=== PATIENT | female | born 1995 | race Caucasian/White ===

== ENCOUNTER 2017-08-26 16:02 | Inpatient (IN) | payer OTHER ==
[2017-08-26] VITALS: BP 106/69; PULSE 123; O2SAT 97
[~2017-08-26] VITALS: Ht 154.9 cm; Wt 80.4 kg
[2017-08-26] MEDS ORDERED: KETOROLAC TROMETHAMINE 30 MG/ML VIAL IV STA (16:40)
[2017-08-26] MEDS ORDERED: ONDANSETRON INJ 2 MG/ML 2 ML VIAL IV STA (16:40)
[2017-08-26] MEDS ORDERED: ACETAMINOPHEN 500 MG TAB PO STA (16:40)
[2017-08-26] MEDS ORDERED: [UNRECOGNIZED DRUG - OTHER] PO (16:44)
[2017-08-26] MEDS ORDERED: SODIUM CHLORIDE 0.9% 1000ML 1,000 ML IV ONE (16:45)
--- NOTE | 2017-08-26 16:46 | EMERGENCY ROOM VISIT NOTE ---
History First contact with patient: 16:31 Chief Complaint: FEVER Stated Complaint: STOMACH HURTS, FEVER, DIZZINESS, HEADACHE History of Present Illness The patient is a 21 year old female who presents to the Emergency Room with complaints of flulike symptoms for the last day. The patient describes body aches, headache, nausea, lightheadedness and a mild sore throat. She denies any chest pain or shortness of breath. She had 2 episodes of vomiting. She denies any abdominal pain or diarrhea. No recent travel. The patient is a [employer] student. Review of Systems 10 system review performed and negative unless noted in HPI or below Past Medical/Surgical History Medical Problems: (1) No Known Active Medical Problems Social History Smoking Status: Never Smoker Alcohol Use: none Occupation Status: [employer] student Current/Historical Medications Scheduled [Tylenol-Caffeine], 1 TAB PO PRN UD Physical Exam Vital Signs Date Time Temp Pulse Resp B/P (MAP) Pulse Ox O2 Delivery O2 Flow Rate FiO2 08/26/17 22:25 37.4 104 16 92/68 99 Nasal Cannula 3 08/26/17 22:15 101 16 96/61 99 Nasal Cannula 3 08/26/17 22:05 103 14 83/64 97 Nasal Cannula 3 08/26/17 21:55 37.2 100 14 93/57 97 Nasal Cannula 3 08/26/17 21:02 89 18 120/87 99 Room Air 08/26/17 19:45 88 18 100/68 96 Room Air 08/26/17 17:57 37.3 99 18 100/58 99 Room Air 08/26/17 16:13 38.6 116 17 118/78 98 Room Air Physical Exam VITALS: Vitals are noted on the nurse's note and reviewed by myself. Vital signs stable. GENERAL: 21-year-old female, mildly ill in appearance, well-developed well- nourished. SKIN: The skin was without rashes, erythema, edema, or bruising. HEAD: Normocephalic atraumatic. EYES: Pupils equal round and reactive to light and accommodation. Conjunctivae without injection, sclerae without icterus. Extraocular movements intact. NOSE: Patent, turbinates without inflammation or discharge. No sinus tenderness. MOUTH: Mucous membranes dry. Tonsils are not enlarged. Pharynx without erythema or exudate. Uvula midline. Airway patent. Tongue does not deviate. NECK: Supple without nuchal rigidity. No lymphadenopathy. Cervical spine is nontender. No JVD. HEART: Regular rate and rhythm without murmurs gallops or rubs. LUNGS: Clear to auscultation bilaterally without wheezes, rales or rhonchi. No accessory muscle use. ABDOMEN: Positive bowel sounds x 4.Soft, nontender, without organomegaly. No guarding or rebound tenderness. Positive left-sided CVA tenderness MUSCULOSKELETAL: No muscle atrophy, erythema, or edema noted. Strength 5/5 throughout. NEURO: Patient was alert and oriented to person place and time. Normal sensation to touch. No focal neurological deficits. Medical Decision & Procedures ER Provider Diagnostic Interpretation: CXR IMPRESSION: 1. No acute cardiopulmonary disease. Electronically signed by: Darci Smith M.D. 08/26/2017 5:02 PM Dictated Date/Time: 08/26/2017 5:02 PM The status of this report is Signed. Draft = Not yet reviewed or approved by Radiologist. Signed = Reviewed and approved by Radiologist. CT abdomen/pelvis with contrast IMPRESSION: 1. Obstructing 4 mm calculus in the proximal left ureter with resultant mild left hydroureteronephrosis. Multifocal regions of hypoperfusion in the left kidney with renal enlargement and perinephric fat stranding raise concern for resultant superimposed infection/pyelonephritis. Correlate with urinalysis. The presence of only mild urothelial thickening and normal fluid density within the left renal collecting system suggests against the presence of pyonephrosis. 2. Bilateral nephrolithiasis. The report will be called/faxed according to standard departmental protocol. Electronically signed by: Darci Smith M.D. 08/26/2017 7:29 PM Dictated Date/Time: 08/26/2017 7:20 PM The status of this report is Signed. Draft = Not yet reviewed or approved by Radiologist. Signed = Reviewed and approved by Radiologist. Laboratory Results 08/26/17 16:55 Red Blood Count 4.35, Mean Corpuscular Volume 80.0, Mean Corpuscular Hemoglobin 26.4, Mean Corpuscular Hemoglobin Concent 33.0, Mean Platelet Volume 9.3, Neutrophils (%) (Auto) 83.0, Lymphocytes (%) (Auto) 8.4, Monocytes (%) (Auto) 8.0, Eosinophils (%) (Auto) 0.0, Basophils (%) (Auto) 0.2, Neutrophils # (Auto) 23.47, Lymphocytes # (Auto) 2.38, Monocytes # (Auto) 2.26, Eosinophils # (Auto) 0.00, Basophils # (Auto) 0.06 08/26/17 16:55 Test 08/26/17 16:55 08/26/17 17:10 08/26/17 18:45 08/26/17 19:43 White Blood Count 28.29 K/uL (4.8-10.8) Red Blood Count 4.35 M/uL (4.2-5.4) Hemoglobin 11.5 g/dL (12.0-16.0) Hematocrit 34.8 % (37-47) Mean Corpuscular Volume 80.0 fL (80-100) Mean Corpuscular Hemoglobin 26.4 pg (25-34) Mean Corpuscular Hemoglobin Concent 33.0 g/dl (32-36) Platelet Count 297 K/uL (130-400) Mean Platelet Volume 9.3 fL (7.4-10.4) Neutrophils (%) (Auto) 83.0 % Lymphocytes (%) (Auto) 8.4 % Monocytes (%) (Auto) 8.0 % Eosinophils (%) (Auto) 0.0 % Basophils (%) (Auto) 0.2 % Neutrophils # (Auto) 23.47 K/uL (1.4-6.5) Lymphocytes # (Auto) 2.38 K/uL (1.2-3.4) Monocytes # (Auto) 2.26 K/uL (0.11-0.59) Eosinophils # (Auto) 0.00 K/uL (0-0.5) Basophils # (Auto) 0.06 K/uL (0-0.2) RDW Standard Deviation 40.6 fL (36.4-46.3) RDW Coefficient of Variation 13.9 % (11.5-14.5) Immature Granulocyte % (Auto) 0.4 % Immature Granulocyte # (Auto) 0.12 K/uL (0.00-0.02) Anion Gap 10.0 mmol/L (3-11) Est Creatinine Clear Calc Drug Dose 78.1 ml/min Estimated GFR () 85.2 Estimated GFR (Non- 73.5 BUN/Creatinine Ratio 14.9 (10-20) Calcium Level 9.2 mg/dl (8.5-10.1) Total Bilirubin 0.8 mg/dl (0.2-1) Aspartate Amino Transf (AST/SGOT) 12 U/L (15-37) Alanine Aminotransferase (ALT/SGPT) 17 U/L (12-78) Alkaline Phosphatase 97 U/L (45-117) Total Protein 7.8 gm/dl (6.4-8.2) Albumin 3.4 gm/dl (3.4-5.0) Globulin 4.4 gm/dl (2.5-4.0) Albumin/Globulin Ratio 0.8 (0.9-2) Influenza Type A (RT-PCR) Neg for Influ A (NEG) Influenza Type B (RT-PCR) Neg for Influ B (NEG) Urine Color YELLOW Urine Appearance CLOUDY (CLEAR) Urine pH 5.0 (4.5-7.5) Urine Specific [place] 1.013 (1.000-1.030) Urine Protein TRACE (NEG) Urine Glucose (UA) NEG (NEG) Urine Ketones TRACE (NEG) Urine Occult Blood 1+ (NEG) Urine Nitrite POS (NEG) Urine Bilirubin NEG (NEG) Urine Urobilinogen NEG (NEG) Urine Leukocyte Esterase MODERATE (NEG) Urine WBC (Auto) 10-30 /hpf (0-5) Urine RBC (Auto) 0-4 /hpf (0-4) Urine Hyaline Casts (Auto) 5-10 /lpf (0-5) Urine Epithelial Cells (Auto) >30 /lpf (0-5) Urine Bacteria (Auto) 2+ (NEG) Urine Test NEG (NEG) Lactic Acid Level 0.8 mmol/L (0.4-2.0) Medications Administered Medications (Trade) Dose Ordered Sig/Lise Route Start Time Stop Time Status Last Admin Dose Admin Ketorolac Tromethamine (Toradol Inj) 30 mg NOW STAT IV 08/26/17 16:40 08/26/17 16:42 DC 08/26/17 17:08 30 MG Acetaminophen (Tylenol Tab) 1,000 mg NOW STAT PO 08/26/17 16:40 08/26/17 16:42 DC 08/26/17 17:09 1,000 MG Sodium Chloride 1,000 ml @ 999 mls/hr Q1H1M ONCE IV 08/26/17 16:45 11/9/17 17:45 DC 08/26/17 17:07 999 MLS/HR Ondansetron HCl (Zofran Inj) 4 mg NOW STAT IV 08/26/17 16:40 08/26/17 16:42 DC 08/26/17 17:08 4 MG Potassium Chloride (Kcl 10 Meq / Wtr) 10 meq NOW STAT IV 08/26/17 18:10 08/26/17 18:12 DC 08/26/17 19:44 10 MEQ Ceftriaxone Sodium (Rocephin Inj) 1 gm NOW STAT IV 08/26/17 19:55 08/26/17 19:56 DC 08/26/17 20:58 1 GM Belladonna/Opium (B & O Adult Supp) 60 mg ONE ONCE OR 08/26/17 22:07 08/26/17 22:08 DC 08/26/17 21:50 60 MG ED Course Patient was seen and examined Vital signs including blood pressure were reviewed medications list was verified with patient Labs were obtained, and a saline lock was established The patient was medicated with Tylenol, Toradol, Zofran and hydrated with 1 L of normal saline The patient was given 1 dose of ceftriaxone 1 g IV Upon reevaluation, the patient was more comfortable. We discussed the results of her workup. A CT of the abdomen and pelvis was performed and reviewed. The case was discussed with Dr. Sanders from urology The patient was reassessed and resting comfortably. We discussed the results of her workup and treatment. She voiced understanding. The patient was taken from the emergency department to the OR for definitive treatment Medical Decision Differential diagnosis: Influenza, strep pharyngitis, viral pharyngitis, meningitis, pneumonia, bronchitis, other viral syndrome, musculoskeletal back pain, viral GI illness, UTI This patient is a 21-year-old female that presented to the emergency department with main complaints of fever, muscle aches and vomiting. Initially, her symptoms sounded like a viral infection. However on physical exam, she does have left-sided CVA tenderness. She has significant leukocytosis with a white blood cell count of almost 30,000. A urinalysis does appear infected. A CT scan reveals left-sided pyelonephritis with a obstructing 4 mm proximal stone. The patient was treated with ceftriaxone. I spoke with Dr. Sanders from urology. The patient was taken from the emergency department to the OR for definitive treatment. This chart was completed in part utilizing [employer] Speech Voice Recognition software. Attempts were made to minimize the grammatical errors, random word insertions, pronoun errors and incomplete sentences. Any formal questions or concerns about the content, text or information contained within the body of this dictation should be directly addressed to the provider for clarification. Consults Consulting Physician: Dr. Sanders Impression Primary Impression: Pyelonephritis Departure Information Referrals No Doctor, Assigned (PCP) Forms HOME CARE DOCUMENTATION FORM, IMPORTANT VISIT INFORMATION Patient Instructions [facility]
--- NOTE | 2017-08-26 17:03 | DIAGNOSTIC IMAGING REPORT ---
CHEST ONE VIEW PORTABLE CLINICAL HISTORY: 21 years-old Female presenting with fever. TECHNIQUE: Portable upright AP view of the chest was obtained. COMPARISON: None. FINDINGS: Cardiomediastinal silhouette normal. Lungs and pleural spaces clear. Osseous structures normal. Upper abdomen normal. IMPRESSION: 1. No acute cardiopulmonary disease. Electronically signed by: Darci Smith M.D. 08/26/2017 5:02 PM Dictated Date/Time: 08/26/2017 5:02 PM
[2017-08-26 17:13] LABS: HEMATOCRIT 34.8 % (37-47); MEAN CORPUSCULAR HEMOGLOBIN 26.4 pg (25-34); MEAN PLATELET VOLUME 9.3 fL (7.4-10.4); PLATELET COUNT 297 K/uL (130-400); RED BLOOD COUNT 4.35 M/uL (4.2-5.4); WHITE BLOOD COUNT 28.29 K/uL (4.8-10.8)
[2017-08-26 17:32] LABS: BUN/CREATININE RATIO 14.9 (10-20); CALCIUM 9.2 mg/dl (8.5-10.1); CREATININE 1.09 mg/dl (0.60-1.20); POTASSIUM 2.9 mmol/L (3.5-5.1)
[2017-08-26 17:34] LABS: ALB/GLOB RATIO 0.8 (0.9-2)
[2017-08-26 18:02] LABS: INFLUENZA A PCR Neg for Influ A (NEG); INFLUENZA B PCR Neg for Influ B (NEG)
[2017-08-26] MEDS ORDERED: POTASSIUM CHLORIDE 10 MEQ / 100ML WTR IV STA (18:10)
[2017-08-26 18:27] LABS: BASO % 0.2 %; BASO ABS # 0.06 K/uL (0-0.2); COMPLETE YES; IG% 0.4 %; LYMPH % 8.4 %; LYMPH ABS # 2.38 K/uL (1.2-3.4)
[2017-08-26] MEDS ORDERED: OPTIRAY 320 IV PRN (18:45)
[2017-08-26 19:04] LABS: URINE APPEARANCE CLOUDY (CLEAR); URINE BILIRUBIN NEG (NEG); URINE COLOR YELLOW; URINE EPITHELIAL CELL AUTO >30 /lpf (0-5); URINE NITRITE POS (NEG); URINE SPECIFIC GRAVITY 1.013 (1.000-1.030); UROBILINOGEN NEG (NEG)
[2017-08-26 19:10] LABS: MANUAL MICROSCOPIC REQUIRED? NO; REVIEW REQ? YES
--- NOTE | 2017-08-26 19:31 | DIAGNOSTIC IMAGING REPORT ---
ABD/PELVIS IV CONTRAST ONLY CLINICAL HISTORY: 21 years-old Female presenting with fever epigastric left CVA tenderness/pain. TECHNIQUE: Multidetector CT of the abdomen and pelvis was performed after the administration of intravenous contrast. IV contrast: 94 mL of Optiray 320. A dose lowering technique was used consistent with the principles of ALARA (as low as reasonably achievable). COMPARISON: None. CT DOSE (mGy.cm): The estimated cumulative dose is 422.75 mGy.cm. FINDINGS: Senior [employer] topogram: Unremarkable. Lung bases: Minimal dependent changes likely atelectasis. Normal heart size. No pericardial or pleural effusion. Liver: Normal morphology. No liver lesion. Patent hepatic vasculature. Biliary: No intrahepatic or extrahepatic biliary ductal dilatation. Normal gallbladder. Pancreas: Normal. Spleen: Normal. Adrenal glands: Normal. Kidneys and ureters: Multifocal regions of hypoperfusion in the left kidney with overall enlargement of the left kidney. Left perinephric fat stranding noted. Mild left hydronephrosis suggested with slight urothelial thickening. Fluid within the left renal collecting system is normal in density. Dilatation of the proximal left ureter. Obstructing 4 mm calculus in the proximal left ureter. Two additional nonobstructing calculi in the left renal collecting system at the lower pole, the larger measuring 5 mm. Nonobstructing calculi also noted in the right kidney, the largest measuring 4 mm. No right hydronephrosis. Right ureter normal. Bladder: Normal. Pelvic organs: Uterus and ovaries normal. Bowel: Normal appendix. No bowel obstruction. Peritoneal cavity: No free fluid or intraperitoneal gas. Lymph nodes: No enlarged lymph nodes in the abdomen or pelvis. Vasculature: Aorta and IVC patent and normal in caliber. Abdominal wall: Normal. Musculoskeletal: Normal. IMPRESSION: 1. Obstructing 4 mm calculus in the proximal left ureter with resultant mild left hydroureteronephrosis. Multifocal regions of hypoperfusion in the left kidney with renal enlargement and perinephric fat stranding raise concern for resultant superimposed infection/pyelonephritis. Correlate with urinalysis. The presence of only mild urothelial thickening and normal fluid density within the left renal collecting system suggests against the presence of pyonephrosis. 2. Bilateral nephrolithiasis. The report will be called/faxed according to standard departmental protocol. Electronically signed by: Darci Smith M.D. 08/26/2017 7:29 PM Dictated Date/Time: 08/26/2017 7:20 PM
[2017-08-26] MEDS ORDERED: CEFTRIAXONE SOD INJ 1 GM ADDVIAL IV STA (19:55)
--- NOTE | 2017-08-26 21:03 | Urology Consultation ---
History General Date of Service: Aug 26, 2017. Chief Complaint: uti left ureteral stone Primary Care Physician: No Doctor, Assigned Pt seen a urologist before?: No History of Present Illness I am asked by Ms Rikki URIBE to evaluate and treat patient for left ureteral stone with infection. She has been ill for one day. She is febrile with white count of 30k. She has ct with inflammatory changes and obstructing stone 4mm left upper ureter. U/A is dirty. SHe has not had stone before. She is tachy but holding her pressures. Pain is moderate. Imaging Imaging: CT Laboratory Results Past 24 Hours Test 08/26/17 16:55 08/26/17 17:10 08/26/17 18:45 08/26/17 19:43 Range/Units White Blood Count 28.29 4.8-10.8 K/uL Red Blood Count 4.35 4.2-5.4 M/uL Hemoglobin 11.5 12.0-16.0 g/dL Hematocrit 34.8 37-47 % Mean Corpuscular Volume 80.0 80-100 fL Mean Corpuscular Hemoglobin 26.4 25-34 pg Mean Corpuscular Hemoglobin Concent 33.0 32-36 g/dl Platelet Count 297 130-400 K/uL Mean Platelet Volume 9.3 7.4-10.4 fL Neutrophils (%) (Auto) 83.0 % Lymphocytes (%) (Auto) 8.4 % Monocytes (%) (Auto) 8.0 % Eosinophils (%) (Auto) 0.0 % Basophils (%) (Auto) 0.2 % Neutrophils # (Auto) 23.47 1.4-6.5 K/uL Lymphocytes # (Auto) 2.38 1.2-3.4 K/uL Monocytes # (Auto) 2.26 0.11-0.59 K/uL Eosinophils # (Auto) 0.00 0-0.5 K/uL Basophils # (Auto) 0.06 0-0.2 K/uL RDW Standard Deviation 40.6 36.4-46.3 fL RDW Coefficient of Variation 13.9 11.5-14.5 % Immature Granulocyte % (Auto) 0.4 % Immature Granulocyte # (Auto) 0.12 0.00-0.02 K/uL Sodium Level 136 136-145 mmol/L Potassium Level 2.9 3.5-5.1 mmol/L Chloride Level 104 98-107 mmol/L Carbon Dioxide Level 22 21-32 mmol/L Anion Gap 10.0 3-11 mmol/L Blood Urea Nitrogen 16 7-18 mg/dl Creatinine 1.09 0.60-1.20 mg/dl Est Creatinine Clear Calc Drug Dose 78.1 ml/min Estimated GFR () 85.2 Estimated GFR (Non- 73.5 BUN/Creatinine Ratio 14.9 10-20 Random Glucose 126 70-99 mg/dl Calcium Level 9.2 8.5-10.1 mg/dl Total Bilirubin 0.8 0.2-1 mg/dl Aspartate Amino Transf (AST/SGOT) 12 15-37 U/L Alanine Aminotransferase (ALT/SGPT) 17 12-78 U/L Alkaline Phosphatase 97 45-117 U/L Total Protein 7.8 6.4-8.2 gm/dl Albumin 3.4 3.4-5.0 gm/dl Globulin 4.4 2.5-4.0 gm/dl Albumin/Globulin Ratio 0.8 0.9-2 Influenza Type A (RT-PCR) Neg for Influ A NEG Influenza Type B (RT-PCR) Neg for Influ B NEG Urine Color YELLOW Urine Appearance CLOUDY CLEAR Urine pH 5.0 4.5-7.5 Urine Specific [place] 1.013 1.000-1.030 Urine Protein TRACE NEG Urine Glucose (UA) NEG NEG Urine Ketones TRACE NEG Urine Occult Blood 1+ NEG Urine Nitrite POS NEG Urine Bilirubin NEG NEG Urine Urobilinogen NEG NEG Urine Leukocyte Esterase MODERATE NEG Urine WBC (Auto) 10-30 0-5 /hpf Urine RBC (Auto) 0-4 0-4 /hpf Urine Hyaline Casts (Auto) 5-10 0-5 /lpf Urine Epithelial Cells (Auto) >30 0-5 /lpf Urine Bacteria (Auto) 2+ NEG Urine Test NEG NEG Lactic Acid Level 0.8 0.4-2.0 mmol/L Microbiology Results 08/26/17 Blood Culture, Received Pending 08/26/17 Blood Culture, Received Pending Labs were reviewed and are within normal limits unless listed below. Labs are available in the chart and at [facility] Past History no pertinent history Past Surgical History: tonsillectomy Family History no stones Social History Hx Tobacco Use In Past Year?: No Alcohol: never Drug use: none Marital status: single Housing status: lives with friends Occupation status: [employer] student Allergies Coded Allergies: No Known Allergies (Unverified , 08/26/17) Medications Home Medications: Home Meds and Scripts Medications Dose Route/Sig Max Daily Dose Days Date Category [Tylenol-Caffeine] 1 Tab PO PRN UD 08/26/17 Reported Inpatient Medications: Current Inpatient Medications Medications (Trade) Dose Ordered Sig/Lise Route Start Time Stop Time Status Last Admin Dose Admin Ioversol (Optiray 320) 125 ml UD PRN IV 08/26/17 18:45 08/30/17 18:44 Review of Systems Review of Systems Constitutional: + fever, + chills, + frequent headaches Neurological: + dizzy Endocrine: + excessive thirst, + too cold, + tired/sluggish Gastrointestinal: + abdominal pain, + indigestion, + nausea, No constipation, No diarrhea Cardiovascular: No chest pain, No palpitations, No swelling ankles/feet Respiratory: No shortness of breath, No chronic cough Female : + frequent urination, + painful urination, + infections, + kidney stones Physical Exam Vital Signs: Vital Signs Past 12 Hours Date Time Temp Pulse Resp B/P (MAP) Pulse Ox O2 Delivery O2 Flow Rate FiO2 08/26/17 19:45 88 18 100/68 96 Room Air 08/26/17 17:57 37.3 99 18 100/58 99 Room Air 08/26/17 16:13 38.6 116 17 118/78 98 Room Air Physical Exam: General Appearance: WD/WN, no apparent distress, + obese Eyes: bilateral eyes normal inspection ENT: hearing grossly normal Neck: supple, no adenopathy, no JVD, trachea midline Respiratory/Chest: lungs clear, normal breath sounds, no respiratory distress, no accessory muscle use Cardiovascular: no edema, no murmur, + tachycardia, + normal peripheral pulses Extremities: non-tender, normal inspection, no pedal edema, no calf tenderness Neurologic/Psychiatric: alert, normal mood/affect, oriented x 3 Skin: normal color, warm/dry, no rash Lymphatic: no adenopathy Assessment & Plan Assessment & Plan left upper ureteral stone with uti left pyelonephritis needs urgent cysto left stent placement to unobstruct the pyelo may have mild sedation in hospital 2 days until cultures resulted getting ceftriaxone in er I explained surgery and she signed consent.
[2017-08-26] MEDS ORDERED: MIDAZOLAM HCL 1 MG/ML 2ML VIAL ONE (21:07)
[2017-08-26] MEDS ORDERED: FENTANYL CITRATE INJ 50 MCG/1 ML 2 ML VIAL ONE (21:07)
[2017-08-26] MEDS ORDERED: ONDANSETRON INJ 2 MG/ML 2 ML VIAL IV PRN (21:15)
[2017-08-26] MEDS ORDERED: MEPERIDINE HCL 25 MG/ML CARP IV PRN (21:15)
[2017-08-26] MEDS ORDERED: EpHEDrine SULFATE INJ 50 MG/ML AMP IV PRN (21:15)
[2017-08-26] MEDS ORDERED: LABETALOL HCL IV 5 MG/ML 20ML IV PRN (21:15)
[2017-08-26] MEDS ORDERED: HYDROmorphone INJ 2 MG/ML SYR/VIAL IV PRN (21:15)
[2017-08-26] MEDS ORDERED: ATROPINE SULFATE 0.1 MG/ML 5ML SYR IV PRN (21:15)
[2017-08-26] MEDS ORDERED: FLUMAZENIL 0.1 MG/1 ML 10 ML VIAL IV PRN (21:15)
[2017-08-26] MEDS ORDERED: NALOXONE HCL 0.4 MG/1 ML VIAL/CARP IV PRN (21:15)
[2017-08-26] MEDS ORDERED: FENTANYL CITRATE INJ 50 MCG/1 ML 2 ML VIAL IV PRN (21:15)
[2017-08-26] MEDS ORDERED: PHENYLEPHRINE 100MCG/ML 5ML SYR IV PRN (21:15)
[2017-08-26] MEDS ORDERED: PROPOFOL IV EMULSION 10 MG/ML 20 ML VIAL IV ONE (21:42)
[2017-08-26] MEDS ORDERED: BELLADONNA/OPIUM SUPP 60 MG SUPP PR ONE ×2 (21:48→22:07)
--- NOTE | 2017-08-26 21:59 | Anesthesiology Progress Note ---
Anesthesia Post Op Note Date & Time Aug 26, 2017 at 21:59 Vital Signs Pain Intensity: 0 Vital Signs Past 12 Hours Date Time Temp Pulse Resp B/P (MAP) Pulse Ox O2 Delivery O2 Flow Rate FiO2 08/26/17 21:02 89 18 120/87 99 Room Air 08/26/17 19:45 88 18 100/68 96 Room Air 08/26/17 17:57 37.3 99 18 100/58 99 Room Air 08/26/17 16:13 38.6 116 17 118/78 98 Room Air Notes Mental Status: alert / awake / arousable, participated in evaluation Pt Amnestic to Procedure: Yes Nausea / Vomiting: adequately controlled Pain: adequately controlled Airway Patency, RR, SpO2: stable & adequate BP & HR: stable & adequate Hydration State: stable & adequate Anesthetic Complications: no major complications apparent
--- NOTE | 2017-08-26 22:00 | [facility] Operative Report ---
Operative Report Operative Date Aug 26, 2017. Pre-Operative Diagnosis left ureteral stone with pyelonephritis Post-Operative Diagnosis same Procedure(s) Performed cysto left stent palcement Surgeon jaylene Apns Surgeon(s) none Estimated Blood Loss 0mL Findings radio-opaque left upper ureteral stone , retained contrast in collecting system from obstructing stone Fluids 400mL Specimens urine for culture Drains 6 fr 24 centimeter double J stent Anesthesia iv sedation Complication(s) None Disposition Recovery Room / PACU Indications infection with obstructing left upper ureteral stone. plan urgent stent Description of Procedure Patient was sedated and placed in lithotomy position. Her genitals were prepped and draped in sterile fashion. Time out held with team. I placed a 21 fr rigid cystoscope to bladder. The urethra is unremarkable. The UOs are in normal location small round shape. I placed a road runner wire up left ureter and placed a 24 centimeter 6 Fr double J stent with a bit of drag as stent passed stone in upper ureter. There is contrast retained in left renal pelvic from ct scan earlier. The urine which drained post stent placement was cloudy. There is brisk efflux after placement. I left bladder empty and concluded case. I placed a belladonna and opium suppository for post-op pain. She transferred to recovery under my escort, in stable condition. 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 Any exceptions are noted below.
--- NOTE | 2017-08-26 22:08 | DIAGNOSTIC IMAGING REPORT ---
KUB CLINICAL HISTORY: 21 years-old Female presenting with CYSTO. TECHNIQUE: 2 fluoroscopic spot image(s) obtained as part of an intraoperative procedure. COMPARISON: CT performed earlier the same day. FINDINGS/IMPRESSION: A guidewire has been passed into the lower calyx of the left kidney. The left renal collecting system is opacified with contrast. Subsequently a ureteral stent was placed. Please see surgical report for further details. Fluoroscopy dosage (mGy): Not available. Fluoroscopy time: 3 seconds. Number of fluoroscopic spot images: 2. Electronically signed by: Darci Smith M.D. 08/26/2017 10:06 PM Dictated Date/Time: 08/26/2017 10:05 PM
[2017-08-26] MEDS ORDERED: KETOROLAC TROMETHAMINE 30 MG/ML VIAL IV PRN (22:30)
[2017-08-26] MEDS ORDERED: PHENAZOPYRIDINE HCL 100 MG TAB PO PRN (22:30)
--- NOTE | 2017-08-26 22:30 | History and Physical ---
History & Physical Date & Time of Service: Aug 26, 2017 at 22:17 Chief Complaint: Abdominal and Back Pain Primary Care Physician: No Doctor, Assigned History of Present Illness 21 year old female who presented to the ED today with complaints of abdominal pain and left sided back pain. In the ED, she underwent a CT scan that showed obstructing left renal calculi with pyelonephritis. WBC 28K and she was febrile. She was taken to the OR emergently with Dr. Sanders for cysto with left stent placement. Patient was seen in ICU for recovery from anesthesia. She reports her symptoms began last night. She is still have some left sided back pain however not as severe. She also had some nausea earlier however no vomiting. She currently feels chilled. She denies chest pain and shortness of breath. No lightheadedness or dizziness. She denies urinary symptoms. Post op, patient's SBPs are running in the high 80s. She is asymptomatic and currently not in distress. 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 Peter's addendum for physical exam Diagnostics Laboratory Results Results Past 24 Hours Test 08/26/17 16:55 08/26/17 17:10 08/26/17 18:45 08/26/17 19:43 Range/Units White Blood Count 28.29 4.8-10.8 K/uL Red Blood Count 4.35 4.2-5.4 M/uL Hemoglobin 11.5 12.0-16.0 g/dL Hematocrit 34.8 37-47 % Mean Corpuscular Volume 80.0 80-100 fL Mean Corpuscular Hemoglobin 26.4 25-34 pg Mean Corpuscular Hemoglobin Concent 33.0 32-36 g/dl Platelet Count 297 130-400 K/uL Mean Platelet Volume 9.3 7.4-10.4 fL Neutrophils (%) (Auto) 83.0 % Lymphocytes (%) (Auto) 8.4 % Monocytes (%) (Auto) 8.0 % Eosinophils (%) (Auto) 0.0 % Basophils (%) (Auto) 0.2 % Neutrophils # (Auto) 23.47 1.4-6.5 K/uL Lymphocytes # (Auto) 2.38 1.2-3.4 K/uL Monocytes # (Auto) 2.26 0.11-0.59 K/uL Eosinophils # (Auto) 0.00 0-0.5 K/uL Basophils # (Auto) 0.06 0-0.2 K/uL RDW Standard Deviation 40.6 36.4-46.3 fL RDW Coefficient of Variation 13.9 11.5-14.5 % Immature Granulocyte % (Auto) 0.4 % Immature Granulocyte # (Auto) 0.12 0.00-0.02 K/uL Sodium Level 136 136-145 mmol/L Potassium Level 2.9 3.5-5.1 mmol/L Chloride Level 104 98-107 mmol/L Carbon Dioxide Level 22 21-32 mmol/L Anion Gap 10.0 3-11 mmol/L Blood Urea Nitrogen 16 7-18 mg/dl Creatinine 1.09 0.60-1.20 mg/dl Est Creatinine Clear Calc Drug Dose 78.1 ml/min Estimated GFR () 85.2 Estimated GFR (Non- 73.5 BUN/Creatinine Ratio 14.9 10-20 Random Glucose 126 70-99 mg/dl Calcium Level 9.2 8.5-10.1 mg/dl Total Bilirubin 0.8 0.2-1 mg/dl Aspartate Amino Transf (AST/SGOT) 12 15-37 U/L Alanine Aminotransferase (ALT/SGPT) 17 12-78 U/L Alkaline Phosphatase 97 45-117 U/L Total Protein 7.8 6.4-8.2 gm/dl Albumin 3.4 3.4-5.0 gm/dl Globulin 4.4 2.5-4.0 gm/dl Albumin/Globulin Ratio 0.8 0.9-2 Influenza Type A (RT-PCR) Neg for Influ A NEG Influenza Type B (RT-PCR) Neg for Influ B NEG Urine Color YELLOW Urine Appearance CLOUDY CLEAR Urine pH 5.0 4.5-7.5 Urine Specific [place] 1.013 1.000-1.030 Urine Protein TRACE NEG Urine Glucose (UA) NEG NEG Urine Ketones TRACE NEG Urine Occult Blood 1+ NEG Urine Nitrite POS NEG Urine Bilirubin NEG NEG Urine Urobilinogen NEG NEG Urine Leukocyte Esterase MODERATE NEG Urine WBC (Auto) 10-30 0-5 /hpf Urine RBC (Auto) 0-4 0-4 /hpf Urine Hyaline Casts (Auto) 5-10 0-5 /lpf Urine Epithelial Cells (Auto) >30 0-5 /lpf Urine Bacteria (Auto) 2+ NEG Urine Test NEG NEG Lactic Acid Level 0.8 0.4-2.0 mmol/L Test 08/26/17 22:13 Range/Units Microbiology Results 08/26/17 Blood Culture, Received Pending 08/26/17 Blood Culture, Received Pending Diagnostic Radiology CXR IMPRESSION: 1. No acute cardiopulmonary disease. CT ABD/PELVIS IMPRESSION: 1. Obstructing 4 mm calculus in the proximal left ureter with resultant mild left hydroureteronephrosis. Multifocal regions of hypoperfusion in the left kidney with renal enlargement and perinephric fat stranding raise concern for resultant superimposed infection/pyelonephritis. Correlate with urinalysis. The presence of only mild urothelial thickening and normal fluid density within the left renal collecting system suggests against the presence of pyonephrosis. 2. Bilateral nephrolithiasis. Impression Assessment and Plan SEPSIS DUE TO PYELONEPHRITIS / OBSTRUCTING LEFT RENAL CALCULI - admit to tele - patient presenting with abdominal and left sided back pain; in the ED, CT abd/ pelvis showing left pyelonephritis with obstructing renal calculi - on presentation: WBC 28K, febrile, tachycardic; normal lactic acid - taken to the OR emergently with Dr. Sanders for cysto with left stent placement - hypotensive post op however possibly due to anesthesia; will give IVF bolus and reassess - s/p Rocephin in the ED, will continue with; no risk factors for resistance noted - follow urine and blood cultures - per Dr. Sanders: Pyridium for dysuria x 3 days, Flomax daily until stent and stone removed in 1-2 weeks as outpatient surgery HYPOKALEMIA - replace - check Mg+ DVT PROPHYLAXIS - SCDs given recent procedure DISPO - In my clinical judgment this beneficiary meets acute admission criteria, established by [facility], that includes being hospitalized through two midnights. VTE Prophylaxis VTE Risk Assessment Done? Y/N: Yes Risk Level: Low
--- NOTE | 2017-08-26 22:36 | History and Physical ---
History & Physical Date of Service Aug 26, 2017. History & Physical This is a 21 year old female with no significant past medical history presented with severe abdominal and L sided flank pain. This began on the night of suddenly. She developed severe chills and nausea, but no vomiting. Stated that this pain became worse and she presented to the ER - found to have 4mm obstructing stone on the L; with a white count, fevers, and tachycardia. Dr. Sandres, urology, consulted and she had a stent placed. Was seen in the ICU for recovery; her pain subsided, but she was still in distress and had +chills. VITALS: Last Vital Signs Documentation Date Time Temp Pulse Resp B/P (MAP) Pulse Ox O2 Delivery O2 Flow Rate FiO2 08/26/17 22:25 37.4 104 16 92/68 99 Nasal Cannula 3 GEN: +moderate distress, +chills/shaking HEENT: NC/AT CVS: +tachycardia, no murmurs LUNGS: CTA b/l, no wheezing ABD: soft, mildly tender at the L mid abdomen near the umbilicus; normoactive bowel sounds EXT: no edema/cyanosis NEURO: no focal deficits Sepsis secondary to L Pyelonephritis secondary to L obstructing 4mm stone s/p stent placement was given Rocephin in the ED (high WBC, fevers, hypotensive), which we will continue Pyridium x 3 days Flomax for 1-2 weeks as per urology given a 500mL bolus - due to SBP in the 80s IVFs at 125mL/hr monitor in tele Tramadol and Toradol PRN for pain urine culture pending Hypokalemia given 60meq orally monitor K and Mg
[2017-08-26] MEDS ORDERED: ONDANSETRON INJ 2 MG/ML 2 ML VIAL ONE (22:52)
[2017-08-26 23:02] VITALS: BP 95/55; PULSE 120; TEMP 37.6; O2SAT 95; Ht 154.9 cm; Wt 80.4 kg
[2017-08-26] MEDS ORDERED: POTASSIUM CHLORIDE 20 MEQ TABCR PO STA (23:04)
[2017-08-26 23:27] LABS: MAGNESIUM 1.9 mg/dl (1.8-2.4)
[2017-08-26 23:30] VITALS: BP 119/75; PULSE 125; O2SAT 96
[2017-08-26 23:45] VITALS: BP 119/75; PULSE 121; O2SAT 96
[2017-08-27] VITALS (14 sets, daily range): BP systolic 88–114; BP diastolic 46–71; PULSE 103–128; TEMP 36.3–39.5; O2SAT 90–96
[2017-08-27] MEDS ORDERED: INFLUENZA ADMINISTRATION CHARGE ONE (00:30)
[2017-08-27] MEDS ORDERED: INFLUENZA VIRUS QUAD VACCINE 0.5 ML SYR IM. ONE (00:30)
[2017-08-27] MEDS: ACETAMINOPHEN 325 MG TAB PO PRN ×3 (00:54→16:22)
[2017-08-27] MEDS: SODIUM CHLORIDE 0.9% 1000ML 1,000 ML IV SCH ×4 (01:15→21:17)
[2017-08-27] MEDS: SODIUM CHLORIDE 0.9% 500ML 500 ML IV ONE ×2 (01:16→02:25)
[2017-08-27] MEDS ORDERED: NURSING VERBAL MED ORDER ONE (03:45)
[2017-08-27] MEDS ORDERED: SODIUM CHLORIDE 0.9% 500ML 500 ML IV ONE (04:15)
[2017-08-27] MEDS: TAMSULOSIN HCL 0.4 MG CAP PO SCH (07:54)
[2017-08-27 08:24] LABS: BUN/CREATININE RATIO 15.5 (10-20); CALCIUM 7.5 mg/dl (8.5-10.1); CREATININE 0.92 mg/dl (0.60-1.20); MAGNESIUM 1.8 mg/dl (1.8-2.4); POTASSIUM 4.2 mmol/L (3.5-5.1)
[2017-08-27 08:27] LABS: HEMATOCRIT 32.5 % (37-47); MEAN CELL VOLUME 81.3 fL (80-100); MEAN CORPUSCULAR HEMOGLOBIN 25.8 pg (25-34); MEAN CORPUSCULAR HGB CONC 31.7 g/dl (32-36); PLATELET COUNT 253 K/uL (130-400); WHITE BLOOD COUNT 16.56 K/uL (4.8-10.8)
[2017-08-27] MEDS ORDERED: CEFTRIAXONE SOD INJ 1 GM in DEXTROSE 5% ADD-VANTAGE 50ML 50 ML IV SCH (09:00)
--- NOTE | 2017-08-27 09:59 | Progress Note ---
Internal Med Progress Note Date of Service: Aug 27, 2017. Provider Documentation: SUBJECTIVE: Seen and examined at bedside Left flank pain much improved Nausea but no vomiting Denies chest pain, SOB, dizziness, dysuria Poor appetite Also has some epigastric abdominal pain Minimal Hematuria No other complaints OBJECTIVE: Vital Signs-as noted below Physical Exam: General Appearance:Moderately built and nourished, no apparent distress Head: normocephalic, Atraumatic Eyes: normal inspection, EOMI, PERRL Neck: supple, Trachea midline Respiratory/Chest: Normal breath sounds, CTA Cardiovascular: S1, S2, No murmur Abdomen/GI:Soft, mild epigastric tender, Bowel sounds present Extremities/Musculoskelatal:normal inspection, no edema Neurologic/Psych:AAOX3, grossly no focal neurological deficits Skin: normal color, warm Lab data as noted below. ASSESSMENT & PLAN: Sepsis: Pyelonephritis secondary to L renal Caliculi S/P stent POD #1 Leukocytosis trending down Afebrile Continue IV Ceftriaxone# Day 2 Continue IV fluids, Flomax, Pyridium PRN Appreciate Urology help Blood/Urine Cultures: pending Start Pepcid Hypokalemia Replace and monitor DVT Px SCDs Disposition: Plan to discharge home when stable Vital Signs: Date Time Temp Pulse Resp B/P (MAP) Pulse Ox O2 Delivery O2 Flow Rate FiO2 08/27/17 07:31 37.4 107 18 102/63 (76) 93 Room Air 08/27/17 06:10 103 93 Room Air 08/27/17 04:36 37.5 115 18 94/58 (70) 90 Room Air 08/27/17 03:32 Room Air 08/27/17 03:16 39.0 123 20 88/46 (60) 92 Room Air 08/27/17 03:14 39.0 126 18 88/46 (60) 92 Room Air 08/27/17 02:19 39.4 126 18 93/49 (64) 94 Room Air 08/27/17 01:00 39.4 122 18 103/61 (75) 96 Room Air 08/26/17 23:45 121 20 119/75 (90) 96 Room Air 08/26/17 23:30 125 20 119/75 (90) 96 Room Air 08/26/17 23:20 Room Air 08/26/17 23:02 37.6 120 22 95/55 95 Room Air 08/26/17 22:40 37.4 106 16 97/73 99 Room Air 08/26/17 22:25 37.4 104 16 92/68 99 Nasal Cannula 3 08/26/17 22:15 101 16 96/61 99 Nasal Cannula 3 08/26/17 22:05 103 14 83/64 97 Nasal Cannula 3 08/26/17 21:55 37.2 100 14 93/57 97 Nasal Cannula 3 08/26/17 21:02 89 18 120/87 99 Room Air 08/26/17 19:45 88 18 100/68 96 Room Air 08/26/17 17:57 37.3 99 18 100/58 99 Room Air 08/26/17 16:13 38.6 116 17 118/78 98 Room Air Lab Results: Results Past 24 Hours Test 08/26/17 16:55 08/26/17 17:10 08/26/17 18:45 08/26/17 19:43 Range/Units White Blood Count 28.29 4.8-10.8 K/uL Red Blood Count 4.35 4.2-5.4 M/uL Hemoglobin 11.5 12.0-16.0 g/dL Hematocrit 34.8 37-47 % Mean Corpuscular Volume 80.0 80-100 fL Mean Corpuscular Hemoglobin 26.4 25-34 pg Mean Corpuscular Hemoglobin Concent 33.0 32-36 g/dl Platelet Count 297 130-400 K/uL Mean Platelet Volume 9.3 7.4-10.4 fL Neutrophils (%) (Auto) 83.0 % Lymphocytes (%) (Auto) 8.4 % Monocytes (%) (Auto) 8.0 % Eosinophils (%) (Auto) 0.0 % Basophils (%) (Auto) 0.2 % Neutrophils # (Auto) 23.47 1.4-6.5 K/uL Lymphocytes # (Auto) 2.38 1.2-3.4 K/uL Monocytes # (Auto) 2.26 0.11-0.59 K/uL Eosinophils # (Auto) 0.00 0-0.5 K/uL Basophils # (Auto) 0.06 0-0.2 K/uL RDW Standard Deviation 40.6 36.4-46.3 fL RDW Coefficient of Variation 13.9 11.5-14.5 % Immature Granulocyte % (Auto) 0.4 % Immature Granulocyte # (Auto) 0.12 0.00-0.02 K/uL Sodium Level 136 136-145 mmol/L Potassium Level 2.9 3.5-5.1 mmol/L Chloride Level 104 98-107 mmol/L Carbon Dioxide Level 22 21-32 mmol/L Anion Gap 10.0 3-11 mmol/L Blood Urea Nitrogen 16 7-18 mg/dl Creatinine 1.09 0.60-1.20 mg/dl Est Creatinine Clear Calc Drug Dose 78.1 ml/min Estimated GFR () 85.2 Estimated GFR (Non- 73.5 BUN/Creatinine Ratio 14.9 10-20 Random Glucose 126 70-99 mg/dl Calcium Level 9.2 8.5-10.1 mg/dl Magnesium Level 1.9 1.8-2.4 mg/dl Total Bilirubin 0.8 0.2-1 mg/dl Aspartate Amino Transf (AST/SGOT) 12 15-37 U/L Alanine Aminotransferase (ALT/SGPT) 17 12-78 U/L Alkaline Phosphatase 97 45-117 U/L Total Protein 7.8 6.4-8.2 gm/dl Albumin 3.4 3.4-5.0 gm/dl Globulin 4.4 2.5-4.0 gm/dl Albumin/Globulin Ratio 0.8 0.9-2 Influenza Type A (RT-PCR) Neg for Influ A NEG Influenza Type B (RT-PCR) Neg for Influ B NEG Urine Color YELLOW Urine Appearance CLOUDY CLEAR Urine pH 5.0 4.5-7.5 Urine Specific [place] 1.013 1.000-1.030 Urine Protein TRACE NEG Urine Glucose (UA) NEG NEG Urine Ketones TRACE NEG Urine Occult Blood 1+ NEG Urine Nitrite POS NEG Urine Bilirubin NEG NEG Urine Urobilinogen NEG NEG Urine Leukocyte Esterase MODERATE NEG Urine WBC (Auto) 10-30 0-5 /hpf Urine RBC (Auto) 0-4 0-4 /hpf Urine Hyaline Casts (Auto) 5-10 0-5 /lpf Urine Epithelial Cells (Auto) >30 0-5 /lpf Urine Bacteria (Auto) 2+ NEG Urine Test NEG NEG Lactic Acid Level 0.8 0.4-2.0 mmol/L Test 08/27/17 06:50 Range/Units White Blood Count 16.56 4.8-10.8 K/uL Red Blood Count 4.00 4.2-5.4 M/uL Hemoglobin 10.3 12.0-16.0 g/dL Hematocrit 32.5 37-47 % Mean Corpuscular Volume 81.3 80-100 fL Mean Corpuscular Hemoglobin 25.8 25-34 pg Mean Corpuscular Hemoglobin Concent 31.7 32-36 g/dl RDW Standard Deviation 41.9 36.4-46.3 fL RDW Coefficient of Variation 14.1 11.5-14.5 % Platelet Count 253 130-400 K/uL Mean Platelet Volume 10.0 7.4-10.4 fL Sodium Level 143 136-145 mmol/L Potassium Level 4.2 3.5-5.1 mmol/L Chloride Level 113 98-107 mmol/L Carbon Dioxide Level 19 21-32 mmol/L Anion Gap 11.0 3-11 mmol/L Blood Urea Nitrogen 14 7-18 mg/dl Creatinine 0.92 0.60-1.20 mg/dl Est Creatinine Clear Calc Drug Dose 92.8 ml/min Estimated GFR () 104.6 Estimated GFR (Non- 90.3 BUN/Creatinine Ratio 15.5 10-20 Random Glucose 88 70-99 mg/dl Calcium Level 7.5 8.5-10.1 mg/dl Magnesium Level 1.8 1.8-2.4 mg/dl Microbiology Results 08/26/17 Blood Culture, Received Pending 08/26/17 Blood Culture, Received Pending 08/26/17 Urine Culture, Received Pending
[2017-08-27] MEDS: FAMOTIDINE 20 MG TAB PO SCH ×2 (10:51→21:17)
[2017-08-27] MEDS: TRAMADOL HCL 50 MG TAB PO PRN ×2 (14:32→19:51)
[2017-08-27] MEDS ORDERED: PIPERACILL/TAZOBAC CONSULT ACTIVE PRN (14:45)
[2017-08-27] MEDS ORDERED: PIPERACILL/TAZOBAC IV 3.375 GM in DEXTROSE 5% 100ML IV ONE (15:00)
--- NOTE | 2017-08-27 15:50 | Medical Consult ---
Consultation Date of Consultation: Aug 27, 2017. Attending Physician: Gadiel Foley MD Reason for Consultation: Bacteremia History of Present Illness 21-year-old female in prior good health with no significant past medical history presents with acute onset of fever, shaking chills, and left abdominal pain. Found to have evidence of nephrolithiasis and obstructive uropathy, and has now undergone stenting procedure by Urology. Has been now changed to IV Zosyn. Patient tolerating antibiotics without apparent difficulty. Still having shaking chills. Fever and white count appears to be slowly decreasing. 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 student Allergies Coded Allergies: No Known Allergies (Unverified , 08/26/17) Current Inpatient Medications Current Inpatient Medications Medications (Trade) Dose Ordered Sig/Lise Route Start Time Stop Time Status Last Admin Dose Admin Ioversol (Optiray 320) 125 ml UD PRN IV 08/26/17 18:45 08/30/17 18:44 Acetaminophen (Tylenol Tab) 650 mg Q4H PRN PO 08/26/17 22:15 09/25/17 22:14 08/27/17 10:24 650 MG Ondansetron HCl (Zofran Inj) 4 mg Q6H PRN IV 08/26/17 22:15 09/25/17 22:14 Sodium Chloride 1,000 ml @ 125 mls/hr Q8H IV 08/26/17 22:15 09/25/17 22:14 08/27/17 14:09 125 MLS/HR Tamsulosin HCl (Flomax Cap) 0.4 mg QAM PO 08/27/17 09:00 09/26/17 08:59 08/27/17 07:54 0.4 MG Phenazopyridine HCl (Pyridium Tab) 100 mg TID PRN PO 08/26/17 22:30 08/29/17 22:29 Tramadol HCl (Ultram Tab) 100 mg Q4H PRN PO 08/26/17 22:30 09/25/17 22:29 08/27/17 14:32 100 MG Ketorolac Tromethamine (Toradol Inj) 30 mg Q6H PRN IV 08/26/17 22:30 08/31/17 22:29 Famotidine (Pepcid Tab) 20 mg BID PO 08/27/17 10:00 09/26/17 09:59 08/27/17 10:51 20 MG Piperacillin Sod/ Tazobactam Sod (Consult) 1 ea UD PRN N/A 08/27/17 14:45 09/26/17 14:44 Piperacillin Sod/ Tazobactam Sod 3.375 gm/Dextrose 115 ml @ 28.75 mls/ hr Q8H IV 08/27/17 22:00 09/10/17 21:59 Review of Systems Constitutional: + fever, + chills, + weakness Eyes: No problem reported ENT: No problem reported Respiratory: No hemoptysis Cardiovascular: No problem reported Abdomen: + nausea Musculoskeletal: No problem reported Genitourinary - Female: No problem reported Neurologic: No problem reported Psychiatric: No problem reported Endocrine: No problem reported Hematologic / Lymphatic: No problem reported Integumentary: No problem reported Allergic / Immunologic: No problem reported Physical Exam Date Time Temp Pulse Resp B/P (MAP) Pulse Ox O2 Delivery O2 Flow Rate FiO2 08/27/17 12:00 Room Air 08/27/17 11:53 38.0 08/27/17 10:56 36.3 126 18 96/59 (71) 92 Room Air 08/27/17 10:25 38.5 08/27/17 08:00 Room Air 08/27/17 07:31 37.4 107 18 102/63 (76) 93 Room Air 08/27/17 06:10 103 93 Room Air 08/27/17 04:36 37.5 115 18 94/58 (70) 90 Room Air 08/27/17 03:32 Room Air 08/27/17 03:16 39.0 123 20 88/46 (60) 92 Room Air 08/27/17 03:14 39.0 126 18 88/46 (60) 92 Room Air 08/27/17 02:19 39.4 126 18 93/49 (64) 94 Room Air 08/27/17 01:00 39.4 122 18 103/61 (75) 96 Room Air 08/26/17 23:45 121 20 119/75 (90) 96 Room Air 08/26/17 23:30 125 20 119/75 (90) 96 Room Air 08/26/17 23:20 Room Air 08/26/17 23:02 37.6 120 22 95/55 95 Room Air 08/26/17 22:40 37.4 106 16 97/73 99 Room Air 08/26/17 22:25 37.4 104 16 92/68 99 Nasal Cannula 3 08/26/17 22:15 101 16 96/61 99 Nasal Cannula 3 08/26/17 22:05 103 14 83/64 97 Nasal Cannula 3 08/26/17 21:55 37.2 100 14 93/57 97 Nasal Cannula 3 08/26/17 21:02 89 18 120/87 99 Room Air 08/26/17 19:45 88 18 100/68 96 Room Air 08/26/17 17:57 37.3 99 18 100/58 99 Room Air 08/26/17 16:13 38.6 116 17 118/78 98 Room Air General Appearance: WD/WN, + mild distress Head: normocephalic, atraumatic Eyes: normal inspection, EOMI, sclerae normal ENT: normal ENT inspection, hearing grossly normal, pharynx normal Neck: supple, no adenopathy, thyroid normal, trachea midline Respiratory/Chest: chest non-tender, lungs clear, normal breath sounds, no respiratory distress Cardiovascular: regular rate, rhythm, no edema, no gallop, no murmur Abdomen/GI: normal bowel sounds, soft, no organomegaly, + tenderness (Left- sided) Back: normal inspection, + left CVA tenderness Extremities/Musculoskelatal: no calf tenderness, normal capillary refill Neurologic/Psych: alert, oriented x 3 Skin: normal color, warm/dry, no rash Lymphatic: no adenopathy Laboratory Results Date/Time Source Procedure Growth Status 08/27/17 15:29 Blood Blood Culture Pending Received 08/27/17 15:24 Blood Blood Culture Pending Received 08/26/17 19:43 Blood Blood Culture - Preliminary Gram Negative Bacilli Resulted 08/26/17 19:29 Blood Blood Culture - Preliminary Gram Negative Bacilli Resulted 08/26/17 23:45 Urine , Clean Catch Urine Culture Pending Received Last 24 Hours Test 08/26/17 16:55 08/26/17 17:10 08/26/17 18:45 08/26/17 19:43 White Blood Count 28.29 K/uL Red Blood Count 4.35 M/uL Hemoglobin 11.5 g/dL Hematocrit 34.8 % Mean Corpuscular Volume 80.0 fL Mean Corpuscular Hemoglobin 26.4 pg Mean Corpuscular Hemoglobin Concent 33.0 g/dl Platelet Count 297 K/uL Mean Platelet Volume 9.3 fL Neutrophils (%) (Auto) 83.0 % Lymphocytes (%) (Auto) 8.4 % Monocytes (%) (Auto) 8.0 % Eosinophils (%) (Auto) 0.0 % Basophils (%) (Auto) 0.2 % Neutrophils # (Auto) 23.47 K/uL Lymphocytes # (Auto) 2.38 K/uL Monocytes # (Auto) 2.26 K/uL Eosinophils # (Auto) 0.00 K/uL Basophils # (Auto) 0.06 K/uL RDW Standard Deviation 40.6 fL RDW Coefficient of Variation 13.9 % Immature Granulocyte % (Auto) 0.4 % Immature Granulocyte # (Auto) 0.12 K/uL Sodium Level 136 mmol/L Potassium Level 2.9 mmol/L Chloride Level 104 mmol/L Carbon Dioxide Level 22 mmol/L Anion Gap 10.0 mmol/L Blood Urea Nitrogen 16 mg/dl Creatinine 1.09 mg/dl Est Creatinine Clear Calc Drug Dose 78.1 ml/min Estimated GFR () 85.2 Estimated GFR (Non- 73.5 BUN/Creatinine Ratio 14.9 Random Glucose 126 mg/dl Calcium Level 9.2 mg/dl Magnesium Level 1.9 mg/dl Total Bilirubin 0.8 mg/dl Aspartate Amino Transf (AST/SGOT) 12 U/L Alanine Aminotransferase (ALT/SGPT) 17 U/L Alkaline Phosphatase 97 U/L Total Protein 7.8 gm/dl Albumin 3.4 gm/dl Globulin 4.4 gm/dl Albumin/Globulin Ratio 0.8 Influenza Type A (RT-PCR) Neg for Influ A Influenza Type B (RT-PCR) Neg for Influ B Urine Color YELLOW Urine Appearance CLOUDY Urine pH 5.0 Urine Specific [place] 1.013 Urine Protein TRACE Urine Glucose (UA) NEG Urine Ketones TRACE Urine Occult Blood 1+ Urine Nitrite POS Urine Bilirubin NEG Urine Urobilinogen NEG Urine Leukocyte Esterase MODERATE Urine WBC (Auto) 10-30 /hpf Urine RBC (Auto) 0-4 /hpf Urine Hyaline Casts (Auto) 5-10 /lpf Urine Epithelial Cells (Auto) >30 /lpf Urine Bacteria (Auto) 2+ Urine Test NEG Lactic Acid Level 0.8 mmol/L Test 08/27/17 06:50 White Blood Count 16.56 K/uL Red Blood Count 4.00 M/uL Hemoglobin 10.3 g/dL Hematocrit 32.5 % Mean Corpuscular Volume 81.3 fL Mean Corpuscular Hemoglobin 25.8 pg Mean Corpuscular Hemoglobin Concent 31.7 g/dl RDW Standard Deviation 41.9 fL RDW Coefficient of Variation 14.1 % Platelet Count 253 K/uL Mean Platelet Volume 10.0 fL Sodium Level 143 mmol/L Potassium Level 4.2 mmol/L Chloride Level 113 mmol/L Carbon Dioxide Level 19 mmol/L Anion Gap 11.0 mmol/L Blood Urea Nitrogen 14 mg/dl Creatinine 0.92 mg/dl Est Creatinine Clear Calc Drug Dose 92.8 ml/min Estimated GFR () 104.6 Estimated GFR (Non- 90.3 BUN/Creatinine Ratio 15.5 Random Glucose 88 mg/dl Calcium Level 7.5 mg/dl Magnesium Level 1.8 mg/dl CLINICAL HISTORY: 21 years-old Female presenting with fever epigastric left CVA tenderness/pain. TECHNIQUE: Multidetector CT of the abdomen and pelvis was performed after the administration of intravenous contrast. IV contrast: 94 mL of Optiray 320. A dose lowering technique was used consistent with the principles of ALARA (as low as reasonably achievable). COMPARISON: None. CT DOSE (mGy.cm): The estimated cumulative dose is 422.75 mGy.cm. FINDINGS: Assessor topogram: Unremarkable. Lung bases: Minimal dependent changes likely atelectasis. Normal heart size. No pericardial or pleural effusion. Liver: Normal morphology. No liver lesion. Patent hepatic vasculature. Biliary: No intrahepatic or extrahepatic biliary ductal dilatation. Normal gallbladder. Pancreas: Normal. Spleen: Normal. Adrenal glands: Normal. Kidneys and ureters: Multifocal regions of hypoperfusion in the left kidney with overall enlargement of the left kidney. Left perinephric fat stranding noted. Mild left hydronephrosis suggested with slight urothelial thickening. Fluid within the left renal collecting system is normal in density. Dilatation of the proximal left ureter. Obstructing 4 mm calculus in the proximal left ureter. Two additional nonobstructing calculi in the left renal collecting system at the lower pole, the larger measuring 5 mm. Nonobstructing calculi also noted in the right kidney, the largest measuring 4 mm. No right hydronephrosis. Right ureter normal. Bladder: Normal. Pelvic organs: Uterus and ovaries normal. Bowel: Normal appendix. No bowel obstruction. Peritoneal cavity: No free fluid or intraperitoneal gas. Lymph nodes: No enlarged lymph nodes in the abdomen or pelvis. Vasculature: Aorta and IVC patent and normal in caliber. Abdominal wall: Normal. Musculoskeletal: Normal. IMPRESSION: 1. Obstructing 4 mm calculus in the proximal left ureter with resultant mild left hydroureteronephrosis. Multifocal regions of hypoperfusion in the left kidney with renal enlargement and perinephric fat stranding raise concern for resultant superimposed infection/pyelonephritis. Correlate with urinalysis. The presence of only mild urothelial thickening and normal fluid density within the left renal collecting system suggests against the presence of pyonephrosis. 2. Bilateral nephrolithiasis. The report will be called/faxed according to standard departmental protocol. Assessment & Plan 21-year-old previously healthy female now presents with gram-negative sepsis secondary to pyelonephritis with obstructive uropathy now status post stent placement for obstructing stone. Zosyn should provide adequate coverage pending final identification and sensitivities. Will need a more prolonged course of antibiotics, choice will depend on final culture results. Will follow.
--- NOTE | 2017-08-27 16:16 | Progress Note ---
Subjective Date of Service: Aug 27, 2017. Subjective Pt evaluation today including: conversation w/ patient, physical exam, lab review Voiding: no voiding problems Patient very tired and with nausea. Not able to take PO. Her flank pain is better. She continues to fever intermittently. SHe is currently in the echo lab. Problem List Medical Problems: (1) Pyelonephritis Status: Acute Review of Systems Constitutional: + fever, + chills, + sweats, + fatigue Respiratory: No cough, No shortness of breath, No dyspnea on exertion Cardiac: No chest pain Abdomen: + nausea Female : + urinary frequency, No hematuria Endo: + fatigue, No excessive thirst Objective Vital Signs Date Time Temp Pulse Resp B/P (MAP) Pulse Ox O2 Delivery O2 Flow Rate FiO2 08/27/17 12:00 Room Air 08/27/17 11:53 38.0 08/27/17 10:56 36.3 126 18 96/59 (71) 92 Room Air 08/27/17 10:25 38.5 08/27/17 08:00 Room Air 08/27/17 07:31 37.4 107 18 102/63 (76) 93 Room Air 08/27/17 06:10 103 93 Room Air 08/27/17 04:36 37.5 115 18 94/58 (70) 90 Room Air 08/27/17 03:32 Room Air 08/27/17 03:16 39.0 123 20 88/46 (60) 92 Room Air 08/27/17 03:14 39.0 126 18 88/46 (60) 92 Room Air 08/27/17 02:19 39.4 126 18 93/49 (64) 94 Room Air 08/27/17 01:00 39.4 122 18 103/61 (75) 96 Room Air 08/26/17 23:45 121 20 119/75 (90) 96 Room Air 08/26/17 23:30 125 20 119/75 (90) 96 Room Air 08/26/17 23:20 Room Air 08/26/17 23:02 37.6 120 22 95/55 95 Room Air 08/26/17 22:40 37.4 106 16 97/73 99 Room Air 08/26/17 22:25 37.4 104 16 92/68 99 Nasal Cannula 3 08/26/17 22:15 101 16 96/61 99 Nasal Cannula 3 08/26/17 22:05 103 14 83/64 97 Nasal Cannula 3 08/26/17 21:55 37.2 100 14 93/57 97 Nasal Cannula 3 08/26/17 21:02 89 18 120/87 99 Room Air 08/26/17 19:45 88 18 100/68 96 Room Air 08/26/17 17:57 37.3 99 18 100/58 99 Room Air 08/26/17 16:13 38.6 116 17 118/78 98 Room Air Physical Exam General Appearance: WD/WN, + mild distress, + obese Eyes: normal inspection Respiratory/Chest: no respiratory distress, no accessory muscle use Neurologic/Psychiatric: alert, normal mood/affect, oriented x 3 Skin: normal color, warm/dry, no rash Laboratory Results Last 24 Hours Test 08/26/17 16:55 08/26/17 17:10 08/26/17 18:45 08/26/17 19:43 White Blood Count 28.29 K/uL Red Blood Count 4.35 M/uL Hemoglobin 11.5 g/dL Hematocrit 34.8 % Mean Corpuscular Volume 80.0 fL Mean Corpuscular Hemoglobin 26.4 pg Mean Corpuscular Hemoglobin Concent 33.0 g/dl Platelet Count 297 K/uL Mean Platelet Volume 9.3 fL Neutrophils (%) (Auto) 83.0 % Lymphocytes (%) (Auto) 8.4 % Monocytes (%) (Auto) 8.0 % Eosinophils (%) (Auto) 0.0 % Basophils (%) (Auto) 0.2 % Neutrophils # (Auto) 23.47 K/uL Lymphocytes # (Auto) 2.38 K/uL Monocytes # (Auto) 2.26 K/uL Eosinophils # (Auto) 0.00 K/uL Basophils # (Auto) 0.06 K/uL RDW Standard Deviation 40.6 fL RDW Coefficient of Variation 13.9 % Immature Granulocyte % (Auto) 0.4 % Immature Granulocyte # (Auto) 0.12 K/uL Sodium Level 136 mmol/L Potassium Level 2.9 mmol/L Chloride Level 104 mmol/L Carbon Dioxide Level 22 mmol/L Anion Gap 10.0 mmol/L Blood Urea Nitrogen 16 mg/dl Creatinine 1.09 mg/dl Est Creatinine Clear Calc Drug Dose 78.1 ml/min Estimated GFR () 85.2 Estimated GFR (Non- 73.5 BUN/Creatinine Ratio 14.9 Random Glucose 126 mg/dl Calcium Level 9.2 mg/dl Magnesium Level 1.9 mg/dl Total Bilirubin 0.8 mg/dl Aspartate Amino Transf (AST/SGOT) 12 U/L Alanine Aminotransferase (ALT/SGPT) 17 U/L Alkaline Phosphatase 97 U/L Total Protein 7.8 gm/dl Albumin 3.4 gm/dl Globulin 4.4 gm/dl Albumin/Globulin Ratio 0.8 Influenza Type A (RT-PCR) Neg for Influ A Influenza Type B (RT-PCR) Neg for Influ B Urine Color YELLOW Urine Appearance CLOUDY Urine pH 5.0 Urine Specific [place] 1.013 Urine Protein TRACE Urine Glucose (UA) NEG Urine Ketones TRACE Urine Occult Blood 1+ Urine Nitrite POS Urine Bilirubin NEG Urine Urobilinogen NEG Urine Leukocyte Esterase MODERATE Urine WBC (Auto) 10-30 /hpf Urine RBC (Auto) 0-4 /hpf Urine Hyaline Casts (Auto) 5-10 /lpf Urine Epithelial Cells (Auto) >30 /lpf Urine Bacteria (Auto) 2+ Urine Test NEG Lactic Acid Level 0.8 mmol/L Test 08/27/17 06:50 White Blood Count 16.56 K/uL Red Blood Count 4.00 M/uL Hemoglobin 10.3 g/dL Hematocrit 32.5 % Mean Corpuscular Volume 81.3 fL Mean Corpuscular Hemoglobin 25.8 pg Mean Corpuscular Hemoglobin Concent 31.7 g/dl RDW Standard Deviation 41.9 fL RDW Coefficient of Variation 14.1 % Platelet Count 253 K/uL Mean Platelet Volume 10.0 fL Sodium Level 143 mmol/L Potassium Level 4.2 mmol/L Chloride Level 113 mmol/L Carbon Dioxide Level 19 mmol/L Anion Gap 11.0 mmol/L Blood Urea Nitrogen 14 mg/dl Creatinine 0.92 mg/dl Est Creatinine Clear Calc Drug Dose 92.8 ml/min Estimated GFR () 104.6 Estimated GFR (Non- 90.3 BUN/Creatinine Ratio 15.5 Random Glucose 88 mg/dl Calcium Level 7.5 mg/dl Magnesium Level 1.8 mg/dl Assessment and Plan POD#1 s/p urgent left ureteral stone for obstructing ureteral stone with pyelonephritis Her blood cultures are now growing GNR so the pyelo went into the blood stream. Her white count improved and she has no lactic acidosis. Her CO2 is lower today so she is still clearing some acidosis. SHe will probably still fever each day for about 2-3 more days fro the kidney infection, usually it will trend lower each day. Await sensitivities from blood and urine. Await results of echo. Continued [facility] stay due to: fever, abnormal vital signs, inadequate po fluid intake, multiple IV medications needed
--- NOTE | 2017-08-27 17:06 | ECHOCARDIOGRAM REPORT ---
*NOTICE TO RECEIVING [employer] This information is strictly Confidential and protected under [place] law. [place] law prohibits you from making any further disclosure of this information unless further disclosure is expressly permitted by the written consent of the person to whom it pertains or is authorized by law. A general authorization for the release of medical or other information is not sufficient for this purpose. Hospital accepts no responsibility if the information is made available to any other person, INCLUDING THE PATIENT. Interpretation Summary * Name: JEN WILSON Study Date: 08/27/2017 04:44 PM BP: 96/59 mmHg * Patient Location: C.2T\S\S242\S\2 HR: 126 * : 1995 (M/d/yyyy) Gender: Female Height: 60 in * Age: 21 yrs Ethnicity: CA Weight: 171 lb * Ordering Physician: Gadiel Foley * Referring Physician: Self, Referred * Performed By: Deirdre Meier RDCS * * Reason For Study: Bacteremia * BSA: 1.7 m2 * -- Conclusions -- * Sinus tachycardia rate 125 bpm. * The left ventricle is normal in size. * There is normal left ventricular wall thickness. * The left ventricular wall motion is normal. * Left ventricular systolic function is normal. * Ejection Fraction = 65-70%. * No valvular disease discerned * There is no pericardial effusion. Procedure Details * A complete two-dimensional transthoracic echocardiogram was performed (2D, M-mode, Doppler and color flow Doppler). Left Ventricle * The left ventricle is normal in size. * There is normal left ventricular wall thickness. * Ejection Fraction = 65-70%. * Left ventricular systolic function is normal. * The left ventricular wall motion is normal. Right Ventricle * The right ventricle is normal in size and function. Atria * The left atrial size is normal. * Right atrial size is normal. * No ASD detected; PFO is not assessed. Mitral Valve * The mitral valve anatomy is normal. * There is no vegetation seen on the mitral valve. * There is no mitral valve stenosis. * There is no mitral regurgitation noted. Tricuspid Valve * The tricuspid valve is normal. * There is no tricuspid stenosis. * There is trace tricuspid regurgitation. Aortic Valve * The aortic valve is normal in structure and function. * No hemodynamically significant valvular aortic stenosis. * No aortic regurgitation is present. Pulmonic Valve * The pulmonic valve is not well visualized. Great Vessels * The aortic root is normal size. Pericardium/Pleural * There is no pericardial effusion. Great Vessels * Normal inferior vena cava diameter and respiratory variation suggests normal central venous pressure. MMode 2D Measurements and Calculations IVSd 0.93 cm IVSs 1.4 cm LVIDd 4.2 cm LVIDs 2.6 cm LVPWd 1.3 cm LVPWs 1.8 cm IVS/LVPW 0.72 FS 38.3 % EDV(Teich) 79.5 ml ESV(Teich) 24.7 ml EF(Teich) 69.0 % EDV(cubed) 75.1 ml ESV(cubed) 17.6 ml EF(cubed) 76.6 % % IVS thick 50.1 % % LVPW thick 36.3 % LV mass(C)d 160.1 grams LV mass(C)dI 91.7 grams/m\S\2 LV mass(C)s 144.4 grams LV mass(C)sI 82.7 grams/m\S\2 SV(Teich) 54.8 ml SI(Teich) 31.4 ml/m\S\2 SV(cubed) 57.5 ml SI(cubed) 32.9 ml/m\S\2 Ao root diam 2.7 cm Ao root area 5.8 cm\S\2 ACS 2.0 cm LA dimension 2.9 cm LA/Ao 1.1 LVAd ap4 26.6 cm\S\2 LVLd ap4 8.0 cm EDV(MOD-sp4) 78.2 ml EDV(sp4-el) 75.3 ml LVAs ap4 14.9 cm\S\2 LVLs ap4 6.2 cm ESV(MOD-sp4) 34.9 ml ESV(sp4-el) 30.5 ml EF(MOD-sp4) 55.4 % EF(sp4-el) 59.5 % LVAd ap2 25.4 cm\S\2 LVLd ap2 8.1 cm EDV(MOD-sp2) 72.8 ml EDV(sp2-el) 67.6 ml LVAs ap2 12.5 cm\S\2 LVLs ap2 6.3 cm ESV(MOD-sp2) 23.9 ml ESV(sp2-el) 21.1 ml EF(MOD-sp2) 67.2 % EF(sp2-el) 68.8 % LVLd %diff 1.5 % EDV(MOD-bp) 75.6 ml LVLs %diff 2.0 % ESV(MOD-bp) 29.0 ml EF(MOD-bp) 61.6 % SV(MOD-sp4) 43.4 ml SI(MOD-sp4) 24.8 ml/m\S\2 SV(MOD-sp2) 48.9 ml SI(MOD-sp2) 28.0 ml/m\S\2 SV(MOD-bp) 46.6 ml SI(MOD-bp) 26.7 ml/m\S\2 SV(sp4-el) 44.9 ml SI(sp4-el) 25.7 ml/m\S\2 SV(sp2-el) 46.5 ml SI(sp2-el) 26.6 ml/m\S\2 Doppler Measurements and Calculations MV E max kailash 173.3 cm/sec MV A max kailash 47.1 cm/sec MV E/A 3.7 MV dec time 0.21 sec Ao V2 max 175.1 cm/sec Ao max PG 12.3 mmHg Ao max PG (full) 3.1 mmHg LV V1 max PG 9.1 mmHg LV V1 max 151.2 cm/sec PA V2 max 123.4 cm/sec PA max PG 6.1 mmHg
[2017-08-27] MEDS: PIPERACILL/TAZOBAC IV 3.375 GM in DEXTROSE 5% 100ML IV SCH (21:17)
[2017-08-28] VITALS (10 sets, daily range): BP systolic 98–107; BP diastolic 64–74; PULSE 83–112; TEMP 36.9–38.3; O2SAT 88–100
[2017-08-28] MEDS ORDERED: COUGH DROP (SUGAR FREE) LOZ 24 LOZ/1 BOX ONE (02:37)
[2017-08-28] MEDS: ACETAMINOPHEN 325 MG TAB PO PRN ×2 (02:40→22:29)
[2017-08-28] MEDS ORDERED: NURSING DECISION MEDICATION ORDER SCH (02:45)
[2017-08-28] MEDS ORDERED: COUGH DROP (SUGAR FREE) LOZ 24 LOZ/1 BOX PO PRN (05:00)
[2017-08-28] MEDS: PIPERACILL/TAZOBAC IV 3.375 GM in DEXTROSE 5% 100ML IV SCH ×3 (05:43→21:41)
[2017-08-28] MEDS: ONDANSETRON INJ 2 MG/ML 2 ML VIAL IV PRN ×2 (07:55→23:56)
[2017-08-28] MEDS: TAMSULOSIN HCL 0.4 MG CAP PO SCH (09:00)
[2017-08-28 09:11] LABS: BASO % 0.3 %; BASO ABS # 0.03 K/uL (0-0.2); COMPLETE YES; EOS % 0.1 %; HEMATOCRIT 30.8 % (37-47); IG% 0.2 %; LYMPH % 12.1 %; LYMPH ABS # 1.21 K/uL (1.2-3.4); MEAN CELL VOLUME 80.6 fL (80-100); MEAN CORPUSCULAR HEMOGLOBIN 26.2 pg (25-34); MEAN CORPUSCULAR HGB CONC 32.5 g/dl (32-36); MEAN PLATELET VOLUME 9.2 fL (7.4-10.4); MONO % 8.7 %; NEUT % 78.6 %; PLATELET COUNT 211 K/uL (130-400); RED BLOOD COUNT 3.82 M/uL (4.2-5.4); WHITE BLOOD COUNT 9.99 K/uL (4.8-10.8)
[2017-08-28] MEDS ORDERED: FAMOTIDINE IV INJ 20 MG in DEXTROSE 5% 100ML 100 ML IV SCH (09:30)
[2017-08-28] MEDS ORDERED: PROMETHAZINE HCL INJ 12.5 MG in SODIUM CHLORIDE 0.9% 50ML 50 ML IV ONE (09:30)
[2017-08-28 09:39] LABS: BUN/CREATININE RATIO 17.7 (10-20); CREATININE 0.85 mg/dl (0.60-1.20); MAGNESIUM 1.7 mg/dl (1.8-2.4); POTASSIUM 3.9 mmol/L (3.5-5.1)
--- NOTE | 2017-08-28 09:39 | Progress Note ---
Internal Med Progress Note Date of Service: Aug 28, 2017. Provider Documentation: SUBJECTIVE: Seen and examined at bedside Nauseous and had an episode of vomiting this morning Left flank pain, dysuria resolved Minimal hematuria Denies chest pain, dizziness Poor appetite epigastric abdominal pain better Has dry cough No other complaints OBJECTIVE: Vital Signs-as noted below Physical Exam: General Appearance:Moderately built and nourished, no apparent distress Head: normocephalic, Atraumatic Eyes: normal inspection, EOMI, PERRL Neck: supple, Trachea midline Respiratory/Chest: Normal breath sounds, CTA Cardiovascular: S1, S2, No murmur Abdomen/GI:Soft, non tender, Bowel sounds present Extremities/Musculoskelatal:normal inspection, no edema Neurologic/Psych:AAOX3, grossly no focal neurological deficits Skin: normal color, warm Lab data as noted below. ASSESSMENT & PLAN: Sepsis: Pyelonephritis secondary to L renal Caliculi S/P stent POD # 2 Leukocytosis normalized Afebrile today Given IV Ceftriaxone for 2 days >>> Zosyn # Day 2 Continue IV fluids, Flomax, Pyridium PRN Appreciate Urology help Blood Cultures:Gram Negative Bacilli Urine cultures: pending Continue Pepcid Repeat Blood cultures:pending Labs pending this morning ECHO: as below Hypokalemia Replace and monitor DVT Px SCDs Disposition: Plan to discharge home when stable PROCEDURES: ECHO: * Sinus tachycardia rate 125 bpm. * The left ventricle is normal in size. * There is normal left ventricular wall thickness. * The left ventricular wall motion is normal. * Left ventricular systolic function is normal. * Ejection Fraction = 65-70%. * No valvular disease discerned * There is no pericardial effusion. Vital Signs: Date Time Temp Pulse Resp B/P (MAP) Pulse Ox O2 Delivery O2 Flow Rate FiO2 08/28/17 07:02 37.1 98 20 107/70 (82) 99 08/28/17 04:01 37.5 112 18 100/66 (77) 100 Room Air 08/28/17 04:00 Room Air 08/28/17 00:00 Room Air 08/27/17 23:23 37.6 111 20 109/71 (84) 95 Room Air 08/27/17 20:00 Room Air 08/27/17 19:09 37.6 117 18 99/60 (73) 90 Room Air 08/27/17 18:04 38.5 08/27/17 16:16 39.5 128 16 114/71 (85) 96 Room Air 08/27/17 16:00 Room Air 08/27/17 12:00 Room Air 08/27/17 11:53 38.0 08/27/17 10:56 36.3 126 18 96/59 (71) 92 Room Air 08/27/17 10:25 38.5 Lab Results: Results Past 24 Hours Test 08/28/17 08:59 Range/Units White Blood Count 9.99 4.8-10.8 K/uL Red Blood Count 3.82 4.2-5.4 M/uL Hemoglobin 10.0 12.0-16.0 g/dL Hematocrit 30.8 37-47 % Mean Corpuscular Volume 80.6 80-100 fL Mean Corpuscular Hemoglobin 26.2 25-34 pg Mean Corpuscular Hemoglobin Concent 32.5 32-36 g/dl Platelet Count 211 130-400 K/uL Mean Platelet Volume 9.2 7.4-10.4 fL Neutrophils (%) (Auto) 78.6 % Lymphocytes (%) (Auto) 12.1 % Monocytes (%) (Auto) 8.7 % Eosinophils (%) (Auto) 0.1 % Basophils (%) (Auto) 0.3 % Neutrophils # (Auto) 7.85 1.4-6.5 K/uL Lymphocytes # (Auto) 1.21 1.2-3.4 K/uL Monocytes # (Auto) 0.87 0.11-0.59 K/uL Eosinophils # (Auto) 0.01 0-0.5 K/uL Basophils # (Auto) 0.03 0-0.2 K/uL RDW Standard Deviation 42.2 36.4-46.3 fL RDW Coefficient of Variation 14.4 11.5-14.5 % Immature Granulocyte % (Auto) 0.2 % Immature Granulocyte # (Auto) 0.02 0.00-0.02 K/uL Microbiology Results 08/27/17 Blood Culture, Received Pending 08/27/17 Blood Culture, Received Pending
--- NOTE | 2017-08-28 09:43 | Progress Note ---
Subjective Date of Service: Aug 28, 2017. Subjective Pt evaluation today including: conversation w/ patient, physical exam, chart review, lab review Voiding: no voiding problems Pt has hx of stone with pyelo s/p stent placement 08/26/17. Voiding well. Hematuria. No clots. No dysuria. Min urge and freq. She has persistent nausea. WBC normalized. Cr stable and normal. Blood cx positive. Pending finalization. Problem List Medical Problems: (1) Pyelonephritis Status: Acute Review of Systems Constitutional: No fever, No chills Respiratory: No shortness of breath Cardiac: No chest pain Female : + urinary frequency, + hematuria Endo: + fatigue All Other Systems: Reviewed and Negative Objective Vital Signs Date Time Temp Pulse Resp B/P (MAP) Pulse Ox O2 Delivery O2 Flow Rate FiO2 08/28/17 07:02 37.1 98 20 107/70 (82) 99 08/28/17 04:01 37.5 112 18 100/66 (77) 100 Room Air 08/28/17 04:00 Room Air 08/28/17 00:00 Room Air 08/27/17 23:23 37.6 111 20 109/71 (84) 95 Room Air 08/27/17 20:00 Room Air 08/27/17 19:09 37.6 117 18 99/60 (73) 90 Room Air 08/27/17 18:04 38.5 08/27/17 16:16 39.5 128 16 114/71 (85) 96 Room Air 08/27/17 16:00 Room Air 08/27/17 12:00 Room Air 08/27/17 11:53 38.0 08/27/17 10:56 36.3 126 18 96/59 (71) 92 Room Air 08/27/17 10:25 38.5 Physical Exam General Appearance: WD/WN, no apparent distress Respiratory/Chest: normal breath sounds Cardiovascular: regular rate, rhythm, no edema Abdomen: normal bowel sounds, non tender Neurologic/Psychiatric: alert, oriented x 3 Skin: normal color Lymphatic: no adenopathy Laboratory Results Last 24 Hours Test 08/28/17 08:59 White Blood Count 9.99 K/uL Red Blood Count 3.82 M/uL Hemoglobin 10.0 g/dL Hematocrit 30.8 % Mean Corpuscular Volume 80.6 fL Mean Corpuscular Hemoglobin 26.2 pg Mean Corpuscular Hemoglobin Concent 32.5 g/dl Platelet Count 211 K/uL Mean Platelet Volume 9.2 fL Neutrophils (%) (Auto) 78.6 % Lymphocytes (%) (Auto) 12.1 % Monocytes (%) (Auto) 8.7 % Eosinophils (%) (Auto) 0.1 % Basophils (%) (Auto) 0.3 % Neutrophils # (Auto) 7.85 K/uL Lymphocytes # (Auto) 1.21 K/uL Monocytes # (Auto) 0.87 K/uL Eosinophils # (Auto) 0.01 K/uL Basophils # (Auto) 0.03 K/uL RDW Standard Deviation 42.2 fL RDW Coefficient of Variation 14.4 % Immature Granulocyte % (Auto) 0.2 % Immature Granulocyte # (Auto) 0.02 K/uL Assessment and Plan (1) Hematuria (2) Pyelonephritis Patient has persistent nausea associated with pyelo. WBC normal. Cr normal. Hematuria. Order KUB to further eval proper stent placement. Anti-emetics. Pain control. Likely will settle with time. Continue broad spec abx and IV fluids. Continued [facility] stay due to: fever, abnormal vital signs, inadequate po fluid intake, multiple IV medications needed
[2017-08-28] MEDS ORDERED: DOCUSATE SODIUM 100 MG CAP PO PRN (09:45)
[2017-08-28] MEDS ORDERED: POLYETHYLENE (MIRALAX) 17 GM PACK PO PRN (09:45)
[2017-08-28] MEDS: SODIUM CHLORIDE 0.9% 1000ML 1,000 ML IV SCH ×2 (09:46→15:56)
--- NOTE | 2017-08-28 10:17 | DIAGNOSTIC IMAGING REPORT ---
KUB CLINICAL HISTORY: 21 years-old Female presenting with pyelo, s/p stent placement. TECHNIQUE: Single supine view of the abdomen was obtained. COMPARISON: CT from 08/26/2017. FINDINGS: Normal bowel gas pattern. No evidence of free intraperitoneal gas, pneumatosis, or portal venous gas. Left ureteral stent in place. Calcification noted in the proximal left ureter, which correlates to the site of ureteral calculus seen on recent CT. This is now located at the L2 level, previously L3. Additional calcification noted in the bilateral renal collecting systems. No bladder calculi evident. Osseous structures normal. IMPRESSION: 1. Interval placement of a left ureteral stent since the prior CT. The left ureteral calculus is now located at the level of L2, previously L3. 2. Bilateral nephrolithiasis. Electronically signed by: Darci Smith M.D. 08/28/2017 10:16 AM Dictated Date/Time: 08/28/2017 10:14 AM
[2017-08-28] MEDS: FAMOTIDINE IV INJ 20 MG in SYRINGE 3 ML IV SCH ×2 (11:11→19:53)
--- NOTE | 2017-08-28 12:24 | DIAGNOSTIC IMAGING REPORT ---
CHEST ONE VIEW PORTABLE CLINICAL HISTORY: 21 years-old Female presenting with Hypoxia. TECHNIQUE: Portable upright AP view of the chest was obtained. COMPARISON: 08/26/2017. FINDINGS: Cardiomediastinal silhouette normal. Mildly low lung volumes. Interval development of left lower lobe opacity. No large effusion or pneumothorax. Osseous structures normal. Upper abdomen normal. IMPRESSION: 1. Findings concerning for left lower lobe pneumonia. Electronically signed by: Darci Smith M.D. 08/28/2017 12:22 PM Dictated Date/Time: 08/28/2017 12:22 PM
[2017-08-28] MEDS ORDERED: ALBUT/IPRATROP 3MG/0.5MG NEB 3 ML VIAL INH PRN (16:00)
[2017-08-28] MEDS: ALUMINUM/MAGNESIUM/SIMETH (MAALOX MAX) 30 ML UDC PO PRN (18:27)
[2017-08-28] MEDS: MAGNESIUM CHLORIDE 64MG DELAYED REL TAB PO SCH (19:53)
[2017-08-28] MEDS: TRAMADOL HCL 50 MG TAB PO PRN ×2 (22:40→23:16)
[2017-08-29] VITALS (7 sets, daily range): BP systolic 93–109; BP diastolic 64–74; PULSE 85–96; TEMP 36.6–37.8; O2SAT 95–98
[2017-08-29 05:34] LABS: BASO % 0.4 %; BASO ABS # 0.03 K/uL (0-0.2); COMPLETE YES; HEMATOCRIT 28.6 % (37-47); IG% 0.5 %; LYMPH % 29.4 %; MEAN CELL VOLUME 79.9 fL (80-100); MEAN CORPUSCULAR HGB CONC 32.5 g/dl (32-36); MEAN PLATELET VOLUME 9.2 fL (7.4-10.4); MONO % 10.9 %; NEUT % 56.8 %; PLATELET COUNT 221 K/uL (130-400); RED BLOOD COUNT 3.58 M/uL (4.2-5.4)
[2017-08-29 05:58] LABS: BLOOD UREA NITROGEN 14 mg/dl (7-18); BUN/CREATININE RATIO 18.4 (10-20); CALCIUM 7.6 mg/dl (8.5-10.1); CARBON DIOXIDE 23 mmol/L (21-32); CHLORIDE 114 mmol/L (98-107); CREATININE 0.76 mg/dl (0.60-1.20); GLUCOSE 118 mg/dl (70-99); MAGNESIUM 1.7 mg/dl (1.8-2.4); POTASSIUM 3.6 mmol/L (3.5-5.1); SODIUM 141 mmol/L (136-145)
[2017-08-29] MEDS: PIPERACILL/TAZOBAC IV 3.375 GM in DEXTROSE 5% 100ML IV SCH (06:21)
[2017-08-29] MEDS: SODIUM CHLORIDE 0.9% 1000ML 1,000 ML IV SCH ×2 (06:21→20:47)
[2017-08-29] MEDS: MAGNESIUM CHLORIDE 64MG DELAYED REL TAB PO SCH ×2 (09:41→20:46)
[2017-08-29] MEDS: TRAMADOL HCL 50 MG TAB PO PRN (09:41)
[2017-08-29] MEDS: FAMOTIDINE IV INJ 20 MG in SYRINGE 3 ML IV SCH ×2 (09:41→20:46)
[2017-08-29] MEDS: TAMSULOSIN HCL 0.4 MG CAP PO SCH (09:41)
[2017-08-29] MEDS ORDERED: NURSING DECISION MEDICATION ORDER SCH (10:00)
[2017-08-29] MEDS: ONDANSETRON INJ 2 MG/ML 2 ML VIAL IV PRN (10:02)
--- NOTE | 2017-08-29 10:41 | Progress Note ---
Subjective Date of Service: Aug 29, 2017. Subjective Pt evaluation today including: conversation w/ patient, physical exam, chart review, lab review Still having nausea. Very little appetite. She reports some chest discomfort. No flank pain. No hematuria. No dysuria. KUB yesterday shows the stent well positioned. Stone near L3. Blood Cx finalized. E. Coli with resist to Cipro and Bactrim. Problem List Medical Problems: (1) Pyelonephritis Status: Acute Review of Systems Respiratory: No shortness of breath Cardiac: + chest pain Female : No dysuria, No hematuria Objective Vital Signs Date Time Temp Pulse Resp B/P (MAP) Pulse Ox O2 Delivery O2 Flow Rate FiO2 08/29/17 07:14 37.1 87 16 101/70 (80) 95 Nasal Cannula 2.0 08/29/17 00:32 36.9 96 20 109/74 (86) 96 2.0 08/29/17 00:00 Room Air 08/28/17 22:26 38.3 102 18 100/67 (78) 94 Nasal Cannula 2.0 08/28/17 17:28 37.3 83 16 101/66 (78) 90 Room Air 08/28/17 16:27 100 90 Room Air 08/28/17 16:17 Room Air 08/28/17 15:06 36.9 83 16 106/74 (85) 89 Room Air 08/28/17 14:18 90 Room Air 08/28/17 11:18 93 Nasal Cannula 2.0 08/28/17 10:45 37.5 85 16 98/64 (75) 88 Room Air 08/28/17 10:45 88 Room Air Physical Exam General Appearance: no apparent distress Respiratory/Chest: normal breath sounds Cardiovascular: regular rate, rhythm Abdomen: non tender, soft Neurologic/Psychiatric: alert Skin: no rash Laboratory Results Last 24 Hours Test 08/28/17 17:37 08/28/17 23:21 08/29/17 05:18 Troponin I < 0.015 ng/ml < 0.015 ng/ml < 0.015 ng/ml White Blood Count 8.50 K/uL Red Blood Count 3.58 M/uL Hemoglobin 9.3 g/dL Hematocrit 28.6 % Mean Corpuscular Volume 79.9 fL Mean Corpuscular Hemoglobin 26.0 pg Mean Corpuscular Hemoglobin Concent 32.5 g/dl Platelet Count 221 K/uL Mean Platelet Volume 9.2 fL Neutrophils (%) (Auto) 56.8 % Lymphocytes (%) (Auto) 29.4 % Monocytes (%) (Auto) 10.9 % Eosinophils (%) (Auto) 2.0 % Basophils (%) (Auto) 0.4 % Neutrophils # (Auto) 4.83 K/uL Lymphocytes # (Auto) 2.50 K/uL Monocytes # (Auto) 0.93 K/uL Eosinophils # (Auto) 0.17 K/uL Basophils # (Auto) 0.03 K/uL RDW Standard Deviation 42.0 fL RDW Coefficient of Variation 14.3 % Immature Granulocyte % (Auto) 0.5 % Immature Granulocyte # (Auto) 0.04 K/uL Sodium Level 141 mmol/L Potassium Level 3.6 mmol/L Chloride Level 114 mmol/L Carbon Dioxide Level 23 mmol/L Anion Gap 4.0 mmol/L Blood Urea Nitrogen 14 mg/dl Creatinine 0.76 mg/dl Est Creatinine Clear Calc Drug Dose 114.3 ml/min Estimated GFR () 131.8 Estimated GFR (Non- 113.7 BUN/Creatinine Ratio 18.4 Random Glucose 118 mg/dl Calcium Level 7.6 mg/dl Magnesium Level 1.7 mg/dl Assessment and Plan (1) Hematuria (2) Pyelonephritis Patient has persistent nausea associated with pyelo. WBC normal. Cr normal. KUB shows the stent is well positioned and has not slipped. Will plan to treat stone after infx has cleared with either ESWL or Uscope/ Laser Litho. Continued [facility] stay due to: fever, abnormal vital signs, inadequate po fluid intake, multiple IV medications needed
--- NOTE | 2017-08-29 12:40 | Progress Note ---
Internal Med Progress Note Date of Service: Aug 29, 2017. Provider Documentation: SUBJECTIVE: Seen and examined at bedside Has some dry cough, pleuritic chest pain and nausea Poor appetite Dysuria/flank pain resolved Minimal hematuria No other complaints OBJECTIVE: Vital Signs-as noted below Physical Exam: General Appearance:Moderately built and nourished, no apparent distress Head: normocephalic, Atraumatic Eyes: normal inspection, EOMI, PERRL Neck: supple, Trachea midline Respiratory/Chest: Normal breath sounds, CTA Cardiovascular: S1, S2, No murmur Abdomen/GI:Soft, non tender, Bowel sounds present Extremities/Musculoskelatal:normal inspection, no edema Neurologic/Psych:AAOX3, grossly no focal neurological deficits Skin: normal color, warm Lab data as noted below. ASSESSMENT & PLAN: Sepsis/Bacteremia: Pyelonephritis secondary to L renal Caliculi S/P stent POD # 3 CAP Leukocytosis normalized Afebrile DC zosyn Continue Ceftriaxone ans Azithromycin Continue IV fluids, Flomax, Pyridium PRN Appreciate Urology help Blood Cultures:E.coli Repeat blood cultures: negative to date Urine cultures: Mixed darian Continue Pepcid ECHO: as below Plan for ESWL or Laser Lithotripsy after infection is controlled Troponin X 3: Negative EKG: no signs of Ischemia Hypokalemia/Hypomagnesemia Replace and monitor DVT Px SCDs Disposition: Plan to discharge home when stable PROCEDURES: ECHO: * Sinus tachycardia rate 125 bpm. * The left ventricle is normal in size. * There is normal left ventricular wall thickness. * The left ventricular wall motion is normal. * Left ventricular systolic function is normal. * Ejection Fraction = 65-70%. * No valvular disease discerned * There is no pericardial effusion. Vital Signs: Date Time Temp Pulse Resp B/P (MAP) Pulse Ox O2 Delivery O2 Flow Rate FiO2 08/29/17 07:14 37.1 87 16 101/70 (80) 95 Nasal Cannula 2.0 08/29/17 00:32 36.9 96 20 109/74 (86) 96 2.0 08/29/17 00:00 Room Air 08/28/17 22:26 38.3 102 18 100/67 (78) 94 Nasal Cannula 2.0 08/28/17 17:28 37.3 83 16 101/66 (78) 90 Room Air 08/28/17 16:27 100 90 Room Air 11/11/17 16:17 Room Air 08/28/17 15:06 36.9 83 16 106/74 (85) 89 Room Air 08/28/17 14:18 90 Room Air Lab Results: Results Past 24 Hours Test 08/28/17 17:37 08/28/17 23:21 08/29/17 05:18 Range/Units Troponin I < 0.015 < 0.015 < 0.015 0-0.045 ng/ml White Blood Count 8.50 4.8-10.8 K/uL Red Blood Count 3.58 4.2-5.4 M/uL Hemoglobin 9.3 12.0-16.0 g/dL Hematocrit 28.6 37-47 % Mean Corpuscular Volume 79.9 80-100 fL Mean Corpuscular Hemoglobin 26.0 25-34 pg Mean Corpuscular Hemoglobin Concent 32.5 32-36 g/dl Platelet Count 221 130-400 K/uL Mean Platelet Volume 9.2 7.4-10.4 fL Neutrophils (%) (Auto) 56.8 % Lymphocytes (%) (Auto) 29.4 % Monocytes (%) (Auto) 10.9 % Eosinophils (%) (Auto) 2.0 % Basophils (%) (Auto) 0.4 % Neutrophils # (Auto) 4.83 1.4-6.5 K/uL Lymphocytes # (Auto) 2.50 1.2-3.4 K/uL Monocytes # (Auto) 0.93 0.11-0.59 K/uL Eosinophils # (Auto) 0.17 0-0.5 K/uL Basophils # (Auto) 0.03 0-0.2 K/uL RDW Standard Deviation 42.0 36.4-46.3 fL RDW Coefficient of Variation 14.3 11.5-14.5 % Immature Granulocyte % (Auto) 0.5 % Immature Granulocyte # (Auto) 0.04 0.00-0.02 K/uL Sodium Level 141 136-145 mmol/L Potassium Level 3.6 3.5-5.1 mmol/L Chloride Level 114 98-107 mmol/L Carbon Dioxide Level 23 21-32 mmol/L Anion Gap 4.0 3-11 mmol/L Blood Urea Nitrogen 14 7-18 mg/dl Creatinine 0.76 0.60-1.20 mg/dl Est Creatinine Clear Calc Drug Dose 114.3 ml/min Estimated GFR () 131.8 Estimated GFR (Non- 113.7 BUN/Creatinine Ratio 18.4 10-20 Random Glucose 118 70-99 mg/dl Calcium Level 7.6 8.5-10.1 mg/dl Magnesium Level 1.7 1.8-2.4 mg/dl
[2017-08-29] MEDS ORDERED: AZITHROMYCIN IV 250 MG in DEXTROSE 5% 250ML 250 ML IV SCH (13:00)
[2017-08-29] MEDS: CEFTRIAXONE SOD INJ 2,000 MG in DEXTROSE 5% 50ML 50 ML IV SCH (13:34)
[2017-08-29] MEDS: AZITHROMYCIN IV 250 MG in DEXTROSE 5% 250ML 250 ML IV SCH (14:27)
[2017-08-29] MEDS: ALUMINUM/MAGNESIUM/SIMETH (MAALOX MAX) 30 ML UDC PO PRN (16:37)
[2017-08-29] MEDS: ACETAMINOPHEN 325 MG TAB PO PRN (23:10)
[2017-08-30 07:09] LABS: HEMATOCRIT 29.7 % (37-47); MEAN CELL VOLUME 78.8 fL (80-100); MEAN CORPUSCULAR HEMOGLOBIN 25.7 pg (25-34); MEAN CORPUSCULAR HGB CONC 32.7 g/dl (32-36); MEAN PLATELET VOLUME 9.2 fL (7.4-10.4); PLATELET COUNT 268 K/uL (130-400); RED BLOOD COUNT 3.77 M/uL (4.2-5.4); WHITE BLOOD COUNT 11.74 K/uL (4.8-10.8)
[2017-08-30 07:47] LABS: CALCIUM 7.9 mg/dl (8.5-10.1); CREATININE 0.66 mg/dl (0.60-1.20); MAGNESIUM 1.4 mg/dl (1.8-2.4); POTASSIUM 3.3 mmol/L (3.5-5.1)
[2017-08-30] MEDS: FAMOTIDINE IV INJ 20 MG in SYRINGE 3 ML IV SCH ×2 (08:02→20:52)
[2017-08-30] MEDS: TAMSULOSIN HCL 0.4 MG CAP PO SCH (08:02)
[2017-08-30] MEDS: MAGNESIUM CHLORIDE 64MG DELAYED REL TAB PO SCH (08:02)
[2017-08-30 08:06] VITALS: BP 114/72; PULSE 62; TEMP 37.9; O2SAT 93
[2017-08-30] MEDS: ACETAMINOPHEN 325 MG TAB PO PRN ×3 (08:41→23:56)
[2017-08-30 10:33] VITALS: TEMP 37.1
[2017-08-30] MEDS ORDERED: POTASSIUM CHLORIDE 10 MEQ TABCR PO ONE (11:30)
[2017-08-30] MEDS ORDERED: MAGNESIUM SULFATE 1GM / D5W 1 GM in PREMIXED IN D5W 100 ML IV ONE (11:30)
--- NOTE | 2017-08-30 11:34 | Progress Note ---
Internal Med Progress Note Date of Service: Aug 30, 2017. Provider Documentation: SUBJECTIVE: Seen and examined at bedside States feeling better today Less cough and pleuritic chest pain Tolerating appetite better Dysuria/flank pain/Hematuria resolved No other complaints Clinically improving OBJECTIVE: Vital Signs-as noted below Physical Exam: General Appearance:Moderately built and nourished, no apparent distress Head: normocephalic, Atraumatic Eyes: normal inspection, EOMI, PERRL Neck: supple, Trachea midline Respiratory/Chest: Normal breath sounds, CTA Cardiovascular: S1, S2, No murmur Abdomen/GI:Soft, non tender, Bowel sounds present Extremities/Musculoskelatal:normal inspection, no edema Neurologic/Psych:AAOX3, grossly no focal neurological deficits Skin: normal color, warm Lab data as noted below. ASSESSMENT & PLAN: Sepsis/Bacteremia: Pyelonephritis secondary to L renal Caliculi S/P stent POD # 4 CAP Mild Leukocytosis and low grade fever DC zosyn Continue Ceftriaxone ans Azithromycin Continue IV fluids, Flomax, Pyridium PRN Appreciate Urology help Blood Cultures:E.coli Repeat blood cultures: negative to date Urine cultures: Mixed darian Continue Pepcid ECHO: as below Plan for ESWL or Laser Lithotripsy after infection is controlled Troponin X 3: Negative EKG: no signs of Ischemia Hypokalemia/Hypomagnesemia Replace and monitor DVT Px SCDs Disposition: Plan to discharge home when stable PROCEDURES: ECHO: * Sinus tachycardia rate 125 bpm. * The left ventricle is normal in size. * There is normal left ventricular wall thickness. * The left ventricular wall motion is normal. * Left ventricular systolic function is normal. * Ejection Fraction = 65-70%. * No valvular disease discerned * There is no pericardial effusion. Vital Signs: Date Time Temp Pulse Resp B/P (MAP) Pulse Ox O2 Delivery O2 Flow Rate FiO2 08/30/17 10:33 37.1 08/30/17 08:06 37.9 62 16 114/72 (86) 93 Room Air 08/30/17 08:00 Room Air 08/30/17 00:00 Nasal Cannula 1.0 08/29/17 23:40 37.8 86 18 109/72 (84) 97 Nasal Cannula 1.0 08/29/17 17:39 98 Nasal Cannula 1.0 08/29/17 17:23 36.6 85 16 106/71 (83) 98 Room Air 08/29/17 15:16 37.0 89 18 93/64 (74) 97 Nasal Cannula 1.0 Lab Results: Results Past 24 Hours Test 08/30/17 06:54 Range/Units White Blood Count 11.74 4.8-10.8 K/uL Red Blood Count 3.77 4.2-5.4 M/uL Hemoglobin 9.7 12.0-16.0 g/dL Hematocrit 29.7 37-47 % Mean Corpuscular Volume 78.8 80-100 fL Mean Corpuscular Hemoglobin 25.7 25-34 pg Mean Corpuscular Hemoglobin Concent 32.7 32-36 g/dl RDW Standard Deviation 40.8 36.4-46.3 fL RDW Coefficient of Variation 14.2 11.5-14.5 % Platelet Count 268 130-400 K/uL Mean Platelet Volume 9.2 7.4-10.4 fL Sodium Level 142 136-145 mmol/L Potassium Level 3.3 3.5-5.1 mmol/L Chloride Level 109 98-107 mmol/L Carbon Dioxide Level 21 21-32 mmol/L Anion Gap 12.0 3-11 mmol/L Blood Urea Nitrogen 8 7-18 mg/dl Creatinine 0.66 0.60-1.20 mg/dl Est Creatinine Clear Calc Drug Dose 131.6 ml/min Estimated GFR () 148.4 Estimated GFR (Non- 128.1 BUN/Creatinine Ratio 12.0 10-20 Random Glucose 88 70-99 mg/dl Calcium Level 7.9 8.5-10.1 mg/dl Magnesium Level 1.4 1.8-2.4 mg/dl
[2017-08-30] MEDS: CEFTRIAXONE SOD INJ 2,000 MG in DEXTROSE 5% 50ML 50 ML IV SCH (12:30)
[2017-08-30] MEDS: AZITHROMYCIN IV 250 MG in DEXTROSE 5% 250ML 250 ML IV SCH (14:17)
--- NOTE | 2017-08-30 14:54 | Infectious Disease Progress Nt ---
Progress Note Date of Service Aug 30, 2017. Subjective Pt evaluation today including: conversation w/ patient, physical exam, chart review, lab review, review of studies, conversation w/ service consultant, review of inpatient medication list Patient feeling better. Still with intermittent fever. White count slightly higher. No other new complaints. All Other Systems: Reviewed and Negative Medications Current Inpatient Medications Medications (Trade) Dose Ordered Sig/Lise Route Start Time Stop Time Status Last Admin Dose Admin Ioversol (Optiray 320) 125 ml UD PRN IV 08/26/17 18:45 08/30/17 18:44 Acetaminophen (Tylenol Tab) 650 mg Q4H PRN PO 08/26/17 22:15 09/25/17 22:14 08/30/17 08:41 650 MG Ondansetron HCl (Zofran Inj) 4 mg Q6H PRN IV 08/26/17 22:15 09/25/17 22:14 08/29/17 10:02 4 MG Tamsulosin HCl (Flomax Cap) 0.4 mg QAM PO 08/27/17 09:00 09/26/17 08:59 08/30/17 08:02 0.4 MG Tramadol HCl (Ultram Tab) 100 mg Q4H PRN PO 08/26/17 22:30 09/25/17 22:29 08/29/17 09:41 100 MG Menthol (Nice Yung) 1 yung PRN PRN PO 08/28/17 05:00 09/27/17 04:59 08/29/17 10:01 24 YUNG Famotidine 20 mg/ Syringe 5 ml @ 2.5 mls/min Q12 IV 08/28/17 10:00 09/27/17 09:59 08/30/17 08:02 2.5 MLS/MIN Docusate Sodium (coLACE CAP) 100 mg BID PRN PO 08/28/17 09:45 09/27/17 09:44 08/28/17 19:52 100 MG Polyethylene (Miralax Powder Packet) 17 gm DAILY PRN PO 08/28/17 09:45 09/27/17 09:44 08/28/17 19:52 17 GM Magnesium Chloride (Slow-Mag Tab) 64 mg BID PO 08/28/17 21:00 08/30/17 20:59 08/30/17 08:02 64 MG Albuterol/ Ipratropium (Duoneb) 3 ml Q4R PRN INH 08/28/17 16:00 09/27/17 15:59 08/28/17 16:27 3 ML Al Hydrox/Mg Hydrox/Simethicone (Maalox Max Susp) 15 ml Q6H PRN PO 08/28/17 17:45 09/27/17 17:44 08/29/17 16:37 15 ML Ceftriaxone Sodium 2000 mg/ Dextrose 70 ml @ 100 mls/hr Q24H IV 08/29/17 12:00 09/03/17 11:59 08/30/17 12:30 100 MLS/HR Azithromycin 250 mg/Dextrose 252.5 ml @ 125 mls/hr DAILY@1400 IV 08/29/17 14:00 09/02/17 12:59 08/30/17 14:17 125 MLS/HR Objective Vital Signs Date Time Temp Pulse Resp B/P (MAP) Pulse Ox O2 Delivery O2 Flow Rate FiO2 08/30/17 10:33 37.1 08/30/17 08:06 37.9 62 16 114/72 (86) 93 Room Air 08/30/17 08:00 Room Air 08/30/17 00:00 Nasal Cannula 1.0 08/29/17 23:40 37.8 86 18 109/72 (84) 97 Nasal Cannula 1.0 08/29/17 17:39 98 Nasal Cannula 1.0 08/29/17 17:23 36.6 85 16 106/71 (83) 98 Room Air 08/29/17 15:16 37.0 89 18 93/64 (74) 97 Nasal Cannula 1.0 Physical Exam General Appearance: WD/WN, no apparent distress Eyes: normal inspection, EOMI, sclerae normal ENT: normal ENT inspection, pharynx normal Neck: supple, no adenopathy, trachea midline Respiratory/Chest: chest non-tender, lungs clear, normal breath sounds, no respiratory distress Cardiovascular: regular rate, rhythm, no gallop, no murmur Abdomen: normal bowel sounds, non tender, soft, no organomegaly Extremities: non-tender, no calf tenderness Neurologic/Psychiatric: alert, oriented x 3 Skin: normal color, no rash Lymphatic: no adenopathy Laboratory Results RUN DATE: 08/29/17 [facility] LAB PAGE 1 RUN TIME: 0743 Specimen Inquiry PATIENT: JEN WILSON LOC: [facility] U # : [id number] AGE/SX: ROOM: [facility] REG : 08/26/[address]: Gadiel Foley MD : 1995 BED: 1 DIS : STATUS: ADM IN TLOC: SPEC #: [id number] CHEPE: 08/26/17 STATUS: COMP REQ #: [id number] RECD: 08/26/[address]: Trixie Brandt PA-C SOURCE: BLOOD ENTR: 08/26/[address] [facility] DR: Viktor Bailey D.O. SPDESC: No Doctor, Assigned ORDERED: BLOOD CULTURE Procedure Result Verified Site BLD CULT Final 08/29/17-0743 Organism 1 ESCHERICHIA COLI SENS SENSITIVITY TO FOLLOW Phoned Positive Blood Culture Gram Stain Report to LIANNE SHAH on 08/27/17 At 1155 By [facility]. Results were verbalized back to [facility]. 1. ESCHERICHIA COLI Target Route Dose RX AB Cost M.I.C. IQ ------ ----- ------ -- ------ -------- - ------ TRIMET/SULFA R >2/38 AMPICILLIN R >16 AMPICILLIN/SUL R >16/8 CEFAZOLIN S <=8 CEFOXITIN S <=8 CEFOTAXIME S <=2 CEFTRIAXONE S <=1 CEFEPIME S <=4 CEFUROXIME S <=4 IMIPENEM S <=1 GENTAMICIN S <=4 TOBRAMYCIN S <=4 AMIKACIN S <=16 CIPROFLOXACIN R >2 LEVOFLOXACIN R >4 ERTAPENEM S <=1 PIP/TAZO S <=16 S = SENSITIVE I = INTERMEDIATE R = RESISTANT Last 24 Hours Test 08/30/17 06:54 White Blood Count 11.74 K/uL Red Blood Count 3.77 M/uL Hemoglobin 9.7 g/dL Hematocrit 29.7 % Mean Corpuscular Volume 78.8 fL Mean Corpuscular Hemoglobin 25.7 pg Mean Corpuscular Hemoglobin Concent 32.7 g/dl RDW Standard Deviation 40.8 fL RDW Coefficient of Variation 14.2 % Platelet Count 268 K/uL Mean Platelet Volume 9.2 fL Sodium Level 142 mmol/L Potassium Level 3.3 mmol/L Chloride Level 109 mmol/L Carbon Dioxide Level 21 mmol/L Anion Gap 12.0 mmol/L Blood Urea Nitrogen 8 mg/dl Creatinine 0.66 mg/dl Est Creatinine Clear Calc Drug Dose 131.6 ml/min Estimated GFR () 148.4 Estimated GFR (Non- 128.1 BUN/Creatinine Ratio 12.0 Random Glucose 88 mg/dl Calcium Level 7.9 mg/dl Magnesium Level 1.4 mg/dl Assessment and Plan (1) Hematuria (2) Pyelonephritis Status: Acute 21-year-old previously healthy female now presents with E. coli sepsis secondary to pyelonephritis with obstructive uropathy now status post stent placement for obstructing stone. Patient to continue ceftriaxone, will need few more days of IV Rx depending on clinical response. Will follow.
[2017-08-30] MEDS: ALUMINUM/MAGNESIUM/SIMETH (MAALOX MAX) 30 ML UDC PO PRN (16:44)
[2017-08-30 16:49] VITALS: BP 120/81; PULSE 83; TEMP 37.9; O2SAT 96
--- NOTE | 2017-08-30 17:41 | Progress Note ---
Subjective Date of Service: Aug 30, 2017. Subjective Pt evaluation today including: conversation w/ patient, conversation w/ family , physical exam, chart review, lab review Voiding: no voiding problems patient feeling much better., Nausea has ceased and she is drinking well, eating a little. She is not having stent pain. Having low grade fevers still. Problem List Medical Problems: (1) Pyelonephritis Status: Acute Review of Systems Constitutional: + fever, + fatigue, No chills, No sweats Respiratory: No cough, No sputum, No shortness of breath Abdomen: + nausea, No vomiting, No diarrhea, No constipation Female : + urinary frequency, + hematuria Objective Vital Signs Date Time Temp Pulse Resp B/P (MAP) Pulse Ox O2 Delivery O2 Flow Rate FiO2 08/30/17 17:00 Room Air 08/30/17 16:49 37.9 83 18 120/81 (94) 96 Room Air 08/30/17 10:33 37.1 08/30/17 08:06 37.9 62 16 114/72 (86) 93 Room Air 08/30/17 08:00 Room Air 08/30/17 00:00 Nasal Cannula 1.0 08/29/17 23:40 37.8 86 18 109/72 (84) 97 Nasal Cannula 1.0 Physical Exam General Appearance: WD/WN, no apparent distress Eyes: normal inspection ENT: hearing grossly normal Respiratory/Chest: no respiratory distress, no accessory muscle use Skin: normal color, warm/dry, no rash Laboratory Results Last 24 Hours Test 08/30/17 06:54 White Blood Count 11.74 K/uL Red Blood Count 3.77 M/uL Hemoglobin 9.7 g/dL Hematocrit 29.7 % Mean Corpuscular Volume 78.8 fL Mean Corpuscular Hemoglobin 25.7 pg Mean Corpuscular Hemoglobin Concent 32.7 g/dl RDW Standard Deviation 40.8 fL RDW Coefficient of Variation 14.2 % Platelet Count 268 K/uL Mean Platelet Volume 9.2 fL Sodium Level 142 mmol/L Potassium Level 3.3 mmol/L Chloride Level 109 mmol/L Carbon Dioxide Level 21 mmol/L Anion Gap 12.0 mmol/L Blood Urea Nitrogen 8 mg/dl Creatinine 0.66 mg/dl Est Creatinine Clear Calc Drug Dose 131.6 ml/min Estimated GFR () 148.4 Estimated GFR (Non- 128.1 BUN/Creatinine Ratio 12.0 Random Glucose 88 mg/dl Calcium Level 7.9 mg/dl Magnesium Level 1.4 mg/dl Assessment and Plan POD#4 s/p urgent left ureteral stone for obstructing ureteral stone with pyelonephritis Her blood cultures growing same e coli. home hopefully tomorrow on oral cephalosporin to complete 2 week course plan stone removal surgery this wednesday as outpatient. Patient and family in agreement. Continued [facility] stay due to: fever, abnormal vital signs, inadequate po fluid intake, multiple IV medications needed
[2017-08-30 20:51] VITALS: TEMP 37.3
[2017-08-30 23:24] VITALS: BP 117/73; PULSE 70; TEMP 37.4; O2SAT 94
[2017-08-31 07:28] LABS: HEMATOCRIT 31.1 % (37-47); MEAN CELL VOLUME 78.1 fL (80-100); MEAN CORPUSCULAR HEMOGLOBIN 25.9 pg (25-34); MEAN CORPUSCULAR HGB CONC 33.1 g/dl (32-36); MEAN PLATELET VOLUME 9.6 fL (7.4-10.4); PLATELET COUNT 332 K/uL (130-400); RED BLOOD COUNT 3.98 M/uL (4.2-5.4)
[2017-08-31 07:41] VITALS: BP 124/76; PULSE 55; TEMP 37.5; O2SAT 95
[2017-08-31 07:58] LABS: BLOOD UREA NITROGEN 6 mg/dl (7-18); BUN/CREATININE RATIO 8.1 (10-20); CALCIUM 8.6 mg/dl (8.5-10.1); CARBON DIOXIDE 22 mmol/L (21-32); CHLORIDE 108 mmol/L (98-107); CREATININE 0.74 mg/dl (0.60-1.20); GLUCOSE 86 mg/dl (70-99); SODIUM 140 mmol/L (136-145)
[2017-08-31] MEDS: TAMSULOSIN HCL 0.4 MG CAP PO SCH (08:32)
[2017-08-31] MEDS: FAMOTIDINE IV INJ 20 MG in SYRINGE 3 ML IV SCH (08:33)
--- NOTE | 2017-08-31 09:00 | Progress Note ---
Internal Med Progress Note Date of Service: Aug 31, 2017. Provider Documentation: SUBJECTIVE: Seen and examined at bedside Continues to improve clinically Nausea, pleuritic chest pain, flank pain, dysuria, hematuria resolved Less cough Tolerating diet No other complaints Afebrile, mild leukocytosis OBJECTIVE: Vital Signs-as noted below Physical Exam: General Appearance:Moderately built and nourished, no apparent distress Head: normocephalic, Atraumatic Eyes: normal inspection, EOMI, PERRL Neck: supple, Trachea midline Respiratory/Chest: Normal breath sounds, CTA Cardiovascular: S1, S2, No murmur Abdomen/GI:Soft, non tender, Bowel sounds present Extremities/Musculoskelatal:normal inspection, no edema Neurologic/Psych:AAOX3, grossly no focal neurological deficits Skin: normal color, warm Lab data as noted below. ASSESSMENT & PLAN: Sepsis/Bacteremia: Pyelonephritis secondary to L renal Caliculi S/P stent POD # 5 CAP Mild Leukocytosis and low grade fever DC zosyn Continue Ceftriaxone and Azithromycin today DC IV fluids Continue Flomax, Pyridium PRN Appreciate Urology help Blood Cultures:E.coli Repeat blood cultures: negative to date Urine cultures: Mixed darian Continue Pepcid ECHO: as below Plan for ESWL or Laser Lithotripsy after infection is controlled Troponin X 3: Negative EKG: no signs of Ischemia Discussed with ID : Plan to continue IV ceftriaxone for 5 more days (To Stop on 09/05/17) To start on Omnicef 300mg BID on to complete 2 week course Discussed with Urology : Planned for stone removal surgery this Wednesday (09/03/17) as outpatient. Hypokalemia/Hypomagnesemia Replace and monitor DVT Px SCDs Disposition: Plan to discharge home today Patient doesn't want to establish a PCP and would like to follow up with S Complete the antibiotic course as prescribed (IV ceftriaxone 2gms daily for 5 more days (To Stop on 09/05/17) Start taking Omnicef 300mg twice a day starting 09/06/17 to complete 2 week course) Follow up with your Urologist to get stone removal surgery this Wednesday (09/03/17) as outpatient. Seek immediate medical attention if your symptoms reoccur or worsen PROCEDURES: ECHO: * Sinus tachycardia rate 125 bpm. * The left ventricle is normal in size. * There is normal left ventricular wall thickness. * The left ventricular wall motion is normal. * Left ventricular systolic function is normal. * Ejection Fraction = 65-70%. * No valvular disease discerned * There is no pericardial effusion. Vital Signs: Date Time Temp Pulse Resp B/P (MAP) Pulse Ox O2 Delivery O2 Flow Rate FiO2 08/31/17 07:41 37.5 55 16 124/76 (92) 95 Room Air 08/31/17 00:00 Room Air 08/30/17 23:24 37.4 70 16 117/73 (88) 94 Room Air 08/30/17 20:51 37.3 08/30/17 17:00 Room Air 08/30/17 16:49 37.9 83 18 120/81 (94) 96 Room Air 08/30/17 10:33 37.1 Lab Results: Results Past 24 Hours Test 08/31/17 07:13 08/31/17 07:59 Range/Units White Blood Count 13.00 4.8-10.8 K/uL Red Blood Count 3.98 4.2-5.4 M/uL Hemoglobin 10.3 12.0-16.0 g/dL Hematocrit 31.1 37-47 % Mean Corpuscular Volume 78.1 80-100 fL Mean Corpuscular Hemoglobin 25.9 25-34 pg Mean Corpuscular Hemoglobin Concent 33.1 32-36 g/dl RDW Standard Deviation 40.4 36.4-46.3 fL RDW Coefficient of Variation 14.2 11.5-14.5 % Platelet Count 332 130-400 K/uL Mean Platelet Volume 9.6 7.4-10.4 fL Sodium Level 140 136-145 mmol/L Potassium Level 3.5-5.1 mmol/L Chloride Level 108 98-107 mmol/L Carbon Dioxide Level 22 21-32 mmol/L Anion Gap 10.0 3-11 mmol/L Blood Urea Nitrogen 6 7-18 mg/dl Creatinine 0.74 0.60-1.20 mg/dl Est Creatinine Clear Calc Drug Dose 117.4 ml/min Estimated GFR () 136.1 Estimated GFR (Non- 117.4 BUN/Creatinine Ratio 8.1 10-20 Random Glucose 86 70-99 mg/dl Calcium Level 8.6 8.5-10.1 mg/dl Magnesium Level 1.8-2.4 mg/dl
[2017-08-31] MEDS ORDERED: CEFD300C2 PO (09:07)
[2017-08-31] MEDS ORDERED: FLM4 PO (09:07)
[2017-08-31] MEDS ORDERED: FAMO20TA9 PO (09:07)
--- NOTE | 2017-08-31 09:11 | Discharge Summary ---
Discharge Summary Date of Service Aug 31, 2017. Discharge Summary Admission Date: Aug 26, 2017 at 22:09 Discharge Date: Aug 31, 2017 Discharge Disposition: Home Principal Diagnosis: E.coli Bacteremia, Pyelonephritis secondary to left renal Caliculi Procedures: ECHO: * Sinus tachycardia rate 125 bpm. * The left ventricle is normal in size. * There is normal left ventricular wall thickness. * The left ventricular wall motion is normal. * Left ventricular systolic function is normal. * Ejection Fraction = 65-70%. * No valvular disease discerned * There is no pericardial effusion. CT ABD: 1. Obstructing 4 mm calculus in the proximal left ureter with resultant mild left hydroureteronephrosis. Multifocal regions of hypoperfusion in the left kidney with renal enlargement and perinephric fat stranding raise concern for resultant superimposed infection/pyelonephritis. Correlate with urinalysis. The presence of only mild urothelial thickening and normal fluid density within the left renal collecting system suggests against the presence of pyonephrosis. 2. Bilateral nephrolithiasis. Consultations: ID, Urology Pending Studies/Follow-Up: Follow up with your Physician at [facility] in 1 week for hospital discharge follow up as advised Complete the antibiotic course as prescribed (IV ceftriaxone 2gms daily for 5 more days (To Stop on 09/05/17) Start taking Omnicef 300mg twice a day starting 09/06/17 to complete 2 week course) Follow up with your Urologist to get stone removal surgery this Wednesday (09/03/17) as outpatient. Seek immediate medical attention if your symptoms reoccur or worsen Medication Reconciliation New Medications: Cefdinir (Omnicef) 300 Mg Cap 1 CAP PO BID for 14 Days, #28 CAP Start taking after completing your IV antibiotics (To start on 09/06/17) and complete 2 week course Famotidine (Pepcid) 20 Mg Tab 1 TAB PO BID for 14 Days, #28 TAB 0 Refills Tamsulosin HCl (Tamsulosin HCl) 0.4 Mg Cap 0.4 MG PO QAM for 14 Days, #14 CAP Continued Medications: [Tylenol-Caffeine] () 1 TAB PO PRN UD Admission Information HPI (per Admitting provider): 21 year old female who presented to the ED today with complaints of abdominal pain and left sided back pain. In the ED, she underwent a CT scan that showed obstructing left renal calculi with pyelonephritis. WBC 28K and she was febrile. She was taken to the OR emergently with Dr. Sanders for cysto with left stent placement. Patient was seen in ICU for recovery from anesthesia. She reports her symptoms began last night. She is still have some left sided back pain however not as severe. She also had some nausea earlier however no vomiting. She currently feels chilled. She denies chest pain and shortness of breath. No lightheadedness or dizziness. She denies urinary symptoms. Post op, patient's SBPs are running in the high 80s. She is asymptomatic and currently not in distress. Physical Exam (per Admitting): VITALS: Last Vital Signs Documentation Date Time Temp Pulse Resp B/P (MAP) Pulse Ox O2 Delivery O2 Flow Rate FiO2 08/26/17 22:25 37.4 104 16 92/68 99 Nasal Cannula 3 GEN: +moderate distress, +chills/shaking HEENT: NC/AT CVS: +tachycardia, no murmurs LUNGS: CTA b/l, no wheezing ABD: soft, mildly tender at the L mid abdomen near the umbilicus; normoactive bowel sounds EXT: no edema/cyanosis NEURO: no focal deficits Hospital Course Sepsis/Bacteremia: Pyelonephritis secondary to L renal Caliculi S/P stent POD # 5 CAP Mild Leukocytosis and low grade fever DC zosyn Continue Ceftriaxone and Azithromycin today DC IV fluids Continue Flomax, Pyridium PRN Appreciate Urology help Blood Cultures:E.coli Repeat blood cultures: negative to date Urine cultures: Mixed darian Continue Pepcid ECHO: as below Plan for ESWL or Laser Lithotripsy after infection is controlled Troponin X 3: Negative EKG: no signs of Ischemia Discussed with ID : Plan to continue IV ceftriaxone for 5 more days (To Stop on 09/05/17) To start on Omnicef 300mg BID on to complete 2 week course Discussed with Urology : Planned for stone removal surgery this Wednesday (09/03/17) as outpatient. Hypokalemia/Hypomagnesemia Replace and monitor DVT Px SCDs Disposition: Plan to discharge home today Patient doesn't want to establish a PCP and would like to follow up with S Complete the antibiotic course as prescribed (IV ceftriaxone 2gms daily for 5 more days (To Stop on 09/05/17) Start taking Omnicef 300mg twice a day starting 09/06/17 to complete 2 week course) Follow up with your Urologist to get stone removal surgery this Wednesday (09/03/17) as outpatient. Seek immediate medical attention if your symptoms reoccur or worsen PROCEDURES: ECHO: * Sinus tachycardia rate 125 bpm. * The left ventricle is normal in size. * There is normal left ventricular wall thickness. * The left ventricular wall motion is normal. * Left ventricular systolic function is normal. * Ejection Fraction = 65-70%. * No valvular disease discerned * There is no pericardial effusion. Total time spent on discharge = 36 minutes This includes examination of the patient, discharge planning, medication reconciliation, and communication with other providers. Discharge Instructions Discharge Instructions Date of Service Aug 31, 2017. Admission Reason for Admission: Pyelonephritis Discharge Discharge Diagnosis / Problem: E.coli Bacteremia, Pyelonephritis secondary to left renal Caliculi Discharge Goals Goal(s): Decrease discomfort, Improve function Activity Recommendations Activity Limitations: resume your previous activity Exercise/Sports Limitations: as tolerated . Instructions / Follow-Up Instructions / Follow-Up Follow up with your Physician at [facility] in 1 week for hospital discharge follow up as advised Complete the antibiotic course as prescribed (IV ceftriaxone 2gms daily for 5 more days (To Stop on 09/05/17) Start taking Omnicef 300mg twice a day starting 09/06/17 to complete 2 week course) Follow up with your Urologist to get stone removal surgery this Wednesday (09/03/17) as outpatient. Seek immediate medical attention if your symptoms reoccur or worsen Current Hospital Diet Patient's current hospital diet: Regular Diet Discharge Diet Recommended Diet: Regular Diet Procedures Procedures Performed: Left Ureteral Stent Insertion, Cystoscopy Pending Studies Studies pending at discharge: no Medical Emergencies . Who to Call and When: Medical Emergencies: If at any time you feel your situation is an emergency, please call 911 immediately. . Non-Emergent Contact Non-Emergency issues call your: Primary Care Provider, Urologist Call Non-Emergent contact if: you have a fever, your pain is not controlled, your pain is worsening, your pain is unusual for you, your pain is concerning you, you have any medication questions . . "Provider Documentation" section prepared by Gadiel Foley. . VTE Core Measure Inpt VTE Proph given/why not?: SCD's <Electronically signed by Gadiel Foley MD> Signed: 08/31/17 0910 Signed: The status of this report is Signed * If report status is Draft, the document has not been finalized by the responsible provider.
[2017-08-31 09:36] LABS: MAGNESIUM 1.4 mg/dl (1.8-2.4); POTASSIUM 3.2 mmol/L (3.5-5.1)
[2017-08-31] MEDS: CEFTRIAXONE SOD INJ 2,000 MG in DEXTROSE 5% 50ML 50 ML IV SCH (10:06)
--- NOTE | 2017-08-31 10:27 | Pharmacy Progress Note ---
Automatic IV to PO Conversion Date of Service: Aug 31, 2017. [facility] has identified patient as an appropriate candidate for automatic intravenous to oral conversion. Eligible medication: Zithromax IV every 24 hours. Day # 3 of IV therapy. Subjective The patient is a 21 year old female admitted on Aug 26, 2017 at 22:09 for Pyelonephritis. Objective Vital Signs: Vital Signs Past 12 Hours Date Time Temp Pulse Resp B/P (MAP) Pulse Ox O2 Delivery O2 Flow Rate FiO2 08/31/17 08:00 Room Air 08/31/17 07:41 37.5 55 16 124/76 (92) 95 Room Air 08/31/17 00:00 Room Air 08/30/17 23:24 37.4 70 16 117/73 (88) 94 Room Air White Blood Count: Test 08/31/17 07:13 White Blood Count 13.00 K/uL (4.8-10.8) Height (Feet): 5 Height (Inches): 1.00 Weight (Kilograms): 80.400 Type of Diet: Regular Assessment & Plan The Infectious Disease Society and the [place] [employer] recommend conversion to oral therapy once a patient is determined to be clinically stable and are able to tolerate oral medications. Patient identified as appropriate candidate for IV to PO conversion of Zithromax based on the following criteria: * Afebrile for greater than or equal to 12 hours * Receiving oral/enteral medications and/or tolerating oral/enteral diet for greater than 24 hours * Improvement in clinical condition evidenced by .. WBC count of 13.00 10^3/uL and trending downward, resolution of signs/symptoms of illness * Hemodynamically stable Automatic conversion to: Zithromax PO every 24 hours
[2017-08-31 10:38] VITALS: BP 124/76; PULSE 55; TEMP 37.5; O2SAT 95
[2017-08-31] MEDS ORDERED: AZITHROMYCIN 250 MG TAB PO SCH (14:00)
== END 2017-08-31 13:02 | disposition home or self-care (01) | DRG 872 ==
LOC: C.EDB 16:05 → C.2T 22:09 → ENRESERV 22:41 → C.MS2W 08-28 10:51
PROVIDERS: ADMIT Family Medicine; ATTEND Internal Medicine
PROC: 0T778DZ Dilation of Left Ureter with Intraluminal Device, Via Natural or Artificial Opening Endoscopic (ICD-10-PCS; principal; 2017-08-26 20:39)
DX: A41.51 Sepsis due to Escherichia coli [E. coli] (principal); N13.2 Hydronephrosis with renal and ureteral calculous obstruction; E87.6 Hypokalemia; E83.42 Hypomagnesemia; I95.9 Hypotension, unspecified; T88.59XA Other complications of anesthesia, initial encounter; Y83.8 Other surgical procedures as the cause of abnormal reaction of the patient, or of later complication, without mention of misadventure at the time of the procedure; Y92.239 Unspecified place in hospital as the place of occurrence of the external cause; E66.9 Obesity, unspecified